=== PATIENT | male | born 1955 | race Caucasian/White ===

== ENCOUNTER 2018-08-13 14:41 | Outpatient (CLI) | payer OTHER, MEDICARE, SELFPAY ==
[2018-08-13 16:27] LABS: Anion Gap 11.3 mmol/L (3-11); BUN 24 mg/dL (7-18); CO2 26.7 mmol/L (21.0-32.0); CREATININE 1.23 mg/dL (0.70-1.30); Calcium 8.5 mg/dL (8.5-10.1); Chloride 106 mmol/L (98-107); Estimated GFR 59.06 (mL/min/1.73m2); Glucose 120 mg/dL (70-100); Potassium 3.7 mmol/L (3.5-5.1); Sodium 144 mmol/L (136-145)
[2018-08-14 13:54] LABS: PSA, Screening 4.5 ng/ml (0-4.5)
== END 2018-08-13 15:01 ==
PROVIDERS: PCP Family Medicine; Visit Provider Family Medicine
DX: I10 Essential (primary) hypertension (principal); Z12.5 Encounter for screening for malignant neoplasm of prostate
CPT/HCPCS: 36415; 80048; 84153; 83735

== ENCOUNTER 2019-01-06 14:10 | Outpatient (CLI) | payer OTHER, MEDICARE, SELFPAY | END 2019-01-06 14:30 | PROVIDERS: PCP Family Medicine; Visit Provider Urology | DX: R97.20 Elevated prostate specific antigen [PSA] (principal) | CPT/HCPCS: 36415; 84153 ==

== ENCOUNTER 2019-02-26 16:39 | Outpatient (CLI) | payer OTHER, MEDICARE, SELFPAY ==
--- NOTE | 2019-02-26 14:53 | DI.RAD_ITS ---
SYMPTOMS/DIAGNOSIS: BRONCHITIS, J40, COUGH, CHEST TIGHTNESS PA AND LATERAL CHEST: The heart is normal in size. The lungs are clear. The mediastinal structures and pleura appear intact. SUMMARY: Normal chest.
== END 2019-02-26 16:59 ==
PROVIDERS: PCP Family Medicine; Visit Provider Family Medicine
DX: J40 Bronchitis, not specified as acute or chronic (principal); R05 Cough; R07.89 Other chest pain
CPT/HCPCS: 71046

== ENCOUNTER 2019-03-31 09:25 | Outpatient (REF) | payer OTHER, MEDICARE, SELFPAY ==
[2019-03-31 13:58] LABS: Cholesterol 114 mg/dL (50-200); HDL Cholesterol 29 mg/dL (40-60); LDL CHOLESTEROL 54 mg/dL (<100); Triglyceride 251 mg/dL (30-150)
[2019-03-31 14:00] LABS: Hemoglobin A1C 7.2 % (4.5-6.2)
== END 2019-03-31 09:45 ==
LOC: NCHCN 09:25
PROVIDERS: PCP Family Medicine; Visit Provider Family Medicine
DX: E11.9 Type 2 diabetes mellitus without complications (principal); E78.5 Hyperlipidemia, unspecified
CPT/HCPCS: 80061; 83721; 83036

== ENCOUNTER 2019-06-29 10:51 | Outpatient (REF) | payer OTHER, MEDICARE, SELFPAY ==
[2019-06-29 12:56] LABS: BUN 20 mg/dL (7-18); CREATININE 1.37 mg/dL (0.70-1.30); Calcium 8.4 mg/dL (8.5-10.1); Chloride 105 mmol/L (98-107); Estimated GFR 51.99 (mL/min/1.73m2); Glucose 213 mg/dL (70-100); Magnesium 1.6 mg/dL (1.8-2.4); Potassium 3.5 mmol/L (3.5-5.1); Sodium 144 mmol/L (136-145)
== END 2019-06-29 11:11 ==
LOC: NCHCN 10:51
PROVIDERS: PCP Family Medicine; Visit Provider Family Medicine
DX: I10 Essential (primary) hypertension (principal); R00.8 Other abnormalities of heart beat
CPT/HCPCS: 80048; 83735

== ENCOUNTER 2019-10-28 18:59 | Outpatient (REF) | payer OTHER, MEDICARE, SELFPAY ==
[2019-10-28 20:15] LABS: Anion Gap 7.8 mmol/L (3-11); BUN 22 mg/dL (7-18); CO2 30.2 mmol/L (21.0-32.0); CREATININE 1.23 mg/dL (0.70-1.30); Calcium 8.7 mg/dL (8.5-10.1); Chloride 106 mmol/L (98-107); Estimated GFR 58.87 (mL/min/1.73m2); Glucose 138 mg/dL (74-106); Magnesium 1.9 mg/dL (1.8-2.4); Potassium 3.6 mmol/L (3.5-5.1); Sodium 144 mmol/L (136-145)
== END 2019-10-28 19:19 ==
LOC: NCHCN 18:59
PROVIDERS: PCP Family Medicine; Visit Provider Family Medicine
DX: E87.6 Hypokalemia (principal)
CPT/HCPCS: 80048; 83735

== ENCOUNTER 2020-06-20 19:38 | Outpatient (REF) | payer BC, MEDICARE, SELFPAY ==
[2020-06-20 22:51] LABS: COMMENT (LAB VIEW ONLY) 79.65 mg/dL; Microalb ug/mg Crea 34.9 ug/mg Cr
[2020-06-21 18:28] LABS: PSA, Diagnostic 2.6 ng/mL (0.0-4.5)
== END 2020-06-20 19:58 ==
LOC: NCHCN 19:38
PROVIDERS: PCP Family Medicine; Visit Provider Internal Medicine
DX: E11.9 Type 2 diabetes mellitus without complications (principal); R39.9 Unspecified symptoms and signs involving the genitourinary system
CPT/HCPCS: 82043; 82570; 83036; 84153

== ENCOUNTER 2021-01-27 02:54 | Outpatient (CLI) | payer MEDICARE, BC, SELFPAY ==
[2021-01-27 09:51] LABS: Anion Gap 9.4 mmol/L (3-11); BUN 18 mg/dL (7-18); CO2 30.6 mmol/L (21.0-32.0); CREATININE 1.3 mg/dL (0.70-1.30); Calcium 8.8 mg/dL (8.5-10.1); Chloride 101 mmol/L (98-107); Estimated GFR 55.06 (mL/min/1.73m2); Glucose 304 mg/dL (74-106); Magnesium 1.8 mg/dL (1.8-2.4); Potassium 4.3 mmol/L (3.5-5.1); Sodium 141 mmol/L (136-145); TSH (W/Ref FT4) 2.48 uIU/mL (0.36-3.74)
[2021-01-30 14:01] LABS: Testosterone, Total 422 ng/dL (240-950)
== END 2021-01-27 02:55 | disposition home or self-care (01) ==
LOC: LBO 02:54
PROVIDERS: PCP Family Medicine; Visit Provider Family Medicine
DX: R53.83 Other fatigue (principal); E87.6 Hypokalemia
CPT/HCPCS: 36415; 80048; 84403; 83735; 84443

== ENCOUNTER 2021-07-10 14:15 | Outpatient (REF) | payer MEDICARE, BC, SELFPAY ==
[2021-07-10 16:13] LABS: Anion Gap 8.6 mmol/L (3-11); BUN 21 mg/dL (7-18); CO2 26.4 mmol/L (21.0-32.0); Calcium 8.5 mg/dL (8.5-10.1); Chloride 109 mmol/L (98-107); Glucose 112 mg/dL (74-106); Sodium 144 mmol/L (136-145)
== END 2021-07-10 14:16 | disposition home or self-care (01) ==
LOC: NCHCN 14:15
PROVIDERS: PCP Family Medicine; Visit Provider Family Medicine
DX: E11.9 Type 2 diabetes mellitus without complications (principal); E87.6 Hypokalemia
CPT/HCPCS: 80048

== ENCOUNTER → 2021-08-18 08:19 | Outpatient (BNVA) | payer MEDICARE, BC, SELFPAY | PROVIDERS: PCP Family Medicine; Referring Provider Family Medicine; Visit Provider Student in an Organized Health Care Education/Training Program | DX: M72.0 Palmar fascial fibromatosis [Dupuytren] (principal); Z98.890 Other specified postprocedural states | CPT/HCPCS: 99202 ==

== ENCOUNTER 2022-06-19 15:50 | Outpatient (REF) | payer MEDICARE, BC, SELFPAY ==
[2022-06-19 15:25] LABS: Anion Gap 11.1 mmol/L (3-11); BUN 21 mg/dL (7-18); CO2 24.9 mmol/L (21.0-32.0); CREATININE 1.3 mg/dL (0.70-1.30); Calcium 8.6 mg/dL (8.5-10.1); Chloride 106 mmol/L (98-107); Estimated GFR 54.73 (mL/min/1.73m2); Glucose 139 mg/dL (74-106); Magnesium 1.7 mg/dL (1.8-2.4); Potassium 3.3 mmol/L (3.5-5.1); Sodium 142 mmol/L (136-145)
[2022-06-19 16:00] LABS: Hemoglobin A1C 5.9 % (<5.7)
== END 2022-06-19 15:51 | disposition home or self-care (01) ==
LOC: NCHCN 15:50
PROVIDERS: PCP Family Medicine; Visit Provider Family Medicine
DX: E11.9 Type 2 diabetes mellitus without complications (principal); R00.8 Other abnormalities of heart beat; I10 Essential (primary) hypertension
CPT/HCPCS: 80048; 83036; 83735

== ENCOUNTER 2022-11-12 14:23 | Outpatient (REF) | payer MEDICARE, BC, SELFPAY ==
[2022-11-12 15:55] LABS: Anion Gap 9.1 mmol/L (3-11); BUN 20 mg/dL (7-18); CO2 26.9 mmol/L (21.0-32.0); CREATININE 1.3 mg/dL (0.70-1.30); Calcium 8.6 mg/dL (8.5-10.1); Chloride 106 mmol/L (98-107); Estimated GFR 59.47 (mL/min/1.73m2); Glucose 187 mg/dL (74-106); Magnesium 1.8 mg/dL (1.8-2.4); Potassium 3.6 mmol/L (3.5-5.1); Sodium 142 mmol/L (136-145)
[2022-11-12 23:14] LABS: PSA, Diagnostic 1.8 ng/mL (<=4.5)
== END 2022-11-12 14:24 | disposition home or self-care (01) ==
LOC: NCHCN 14:23
PROVIDERS: PCP Family Medicine; Visit Provider Family Medicine
DX: R39.9 Unspecified symptoms and signs involving the genitourinary system (principal); E87.6 Hypokalemia
CPT/HCPCS: 80048; 83735; 84153

== ENCOUNTER 2023-11-08 17:55 | Outpatient (REF) | payer MEDICARE, BC, SELFPAY ==
[2023-11-08 15:44] LABS: Anion Gap 7.8 mmol/L (3-11); BUN 36 mg/dL (7-18); CO2 28.2 mmol/L (21.0-32.0); Calcium 9.1 mg/dL (8.5-10.1); Calculated LDL 30 mg/dL (<100); Chloride 105 mmol/L (98-107); Cholesterol 105 mg/dL (<200); Estimated GFR 35.24 (mL/min/1.73m2); Glucose 158 mg/dL (74-106); HDL Cholesterol 32 mg/dL (40-60); Magnesium 1.7 mg/dL (1.8-2.4); Potassium 3.3 mmol/L (3.5-5.1); Sodium 141 mmol/L (136-145); Triglyceride 218 mg/dL (<150)
== END 2023-11-08 17:56 | disposition home or self-care (01) ==
LOC: NCHCN 17:55
PROVIDERS: PCP Family Medicine; Visit Provider Family Medicine
DX: I25.10 Atherosclerotic heart disease of native coronary artery without angina pectoris (principal)
CPT/HCPCS: 80048; 80061; 83735

== ENCOUNTER 2023-11-12 19:44 | Outpatient (REF) | payer MEDICARE, BC, SELFPAY ==
[2023-11-12 18:36] LABS: Anion Gap 10.1 mmol/L (3-11); BUN 22 mg/dL (7-18); CO2 27.9 mmol/L (21.0-32.0); CREATININE 1.6 mg/dL (0.70-1.30); Calcium 8.7 mg/dL (8.5-10.1); Chloride 105 mmol/L (98-107); Estimated GFR 46.06 (mL/min/1.73m2); Glucose 172 mg/dL (74-106); Potassium 3.6 mmol/L (3.5-5.1); Sodium 143 mmol/L (136-145)
[2023-11-12 18:52] LABS: Sodium, Urine 67 mmol/L
[2023-11-12 18:55] LABS: COMMENT (LAB VIEW ONLY) 84.64 mg/dL; PROTEIN 8.9 mg/dL
[2023-11-13 17:21] LABS: Urea Nitrogen Random Urine 523 mg/dL (See Note)
== END 2023-11-12 19:45 | disposition home or self-care (01) ==
LOC: NCHCN 19:44
PROVIDERS: PCP Family Medicine; Visit Provider Family Medicine
DX: N28.9 Disorder of kidney and ureter, unspecified (principal)
CPT/HCPCS: 80048; 82565; 84156; 84300; 84540

== ENCOUNTER → 2023-11-13 09:01 | Outpatient (CLI) | payer MEDICARE, BC, SELFPAY ==
--- NOTE | 2023-11-13 | DI.US_ITS ---
Exam(s) US RENAL EXAM: US RENAL CLINICAL HISTORY: N28.9 disorder of kidney and ureter,unspecified. TECHNIQUE: Muniz scale, color and spectral Doppler were used. COMPARISON: CT RENAL COLIC WO CONTRAST from 08/05/2013 FINDINGS: Renal size in cm: Right: 11.3. Left: 12. Echogenicity: There is a parenchymal echogenic focus in the lower pole of the right kidney measuring 7 mm. Hydronephrosis: No. Cyst or mass: There is a 3.1 cm cyst in the left kidney. Nephrolithiasis: No. Other findings: None. Bladder:There is a soft tissue mass in the base of the urinary bladder. It measures 1.8 x 0.9 x 2.7 cm. Ureteral jets: Right: Visualized and unremarkable. Left: Visualized and unremarkable. Prevoid vol:230 cc Postvoid vol:49 cc Prostate: 11 cc Renal color flow: Symmetric and within normal limits. IMPRESSION: 1. Urinary bladder mass. CT urogram is requested for further evaluation. 2. 3.1 cm left renal cyst. DATA REPOSITORY:
== END ==
PROVIDERS: PCP Family Medicine; Visit Provider Family Medicine
DX: N28.9 Disorder of kidney and ureter, unspecified (principal)
CPT/HCPCS: 76770

== ENCOUNTER 2024-03-10 16:52 | Outpatient (REF) | payer MEDICARE, BC, SELFPAY ==
[2024-03-10 16:43] LABS: Anion Gap 10.3 mmol/L (3-11); CO2 26.7 mmol/L (21.0-32.0); CREATININE 1.3 mg/dL (0.70-1.30); Chloride 109 mmol/L (98-107); Estimated GFR 58.73 (mL/min/1.73m2); Glucose 246 mg/dL (74-106); Potassium 3.4 mmol/L (3.5-5.1); Sodium 146 mmol/L (136-145)
[2024-03-10 16:59] LABS: BUN 19 mg/dL (7-18); Calcium 8.4 mg/dL (8.5-10.1)
== END 2024-03-10 16:53 | disposition home or self-care (01) ==
LOC: NCHCN 16:52
PROVIDERS: PCP Family Medicine; Visit Provider Family Medicine
DX: N28.9 Disorder of kidney and ureter, unspecified (principal)
CPT/HCPCS: 80048

== ENCOUNTER 2024-07-07 15:25 | Outpatient (REF) | payer MEDICARE, BC, SELFPAY ==
[2024-07-07 17:42] LABS: BUN 23 mg/dL (7-18); CREATININE 1.3 mg/dL (0.70-1.30); Calcium 9.3 mg/dL (8.5-10.1); Chloride 109 mmol/L (98-107); Estimated GFR 58.73 (mL/min/1.73m2); Glucose 99 mg/dL (74-106); Potassium 3.9 mmol/L (3.5-5.1); Sodium 146 mmol/L (136-145)
== END 2024-07-07 15:26 | disposition home or self-care (01) ==
LOC: NCHCN 15:25
PROVIDERS: PCP Student in an Organized Health Care Education/Training Program; Visit Provider Student in an Organized Health Care Education/Training Program
DX: I10 Essential (primary) hypertension (principal)
CPT/HCPCS: 80048

== ENCOUNTER 2025-01-22 13:14 | Outpatient (REF) | payer MEDICARE, BC, SELFPAY ==
[2025-01-22 16:33] LABS: ALT 23 U/L (16-63); AST 15 U/L (15-37); Albumin 3.7 g/dL (3.4-5.0); Alkaline Phosphatase 76 U/L (46-116); Anion Gap 7.7 mmol/L (3-11); BUN 16 mg/dL (7-18); Bilirubin, Total 2.68 mg/dL (0.2-1.0); CO2 27.3 mmol/L (21.0-32.0); CREATININE 1.3 mg/dL (0.70-1.30); Calcium 9.1 mg/dL (8.5-10.1); Chloride 107 mmol/L (98-107); Estimated GFR 58.73 (mL/min/1.73m2); Glucose 417 mg/dL (74-106); Magnesium 2.2 mg/dL (1.8-2.4); Potassium 4.1 mmol/L (3.5-5.1); Sodium 142 mmol/L (136-145); Vitamin D 25 Total 26.4 ng/mL (30-100)
[2025-01-22 17:27] LABS: Hemoglobin A1C 10.9 % (<5.7)
== END 2025-01-22 13:15 | disposition home or self-care (01) ==
LOC: NCHCN 13:14
PROVIDERS: PCP Student in an Organized Health Care Education/Training Program; Visit Provider Student in an Organized Health Care Education/Training Program
DX: E11.9 Type 2 diabetes mellitus without complications (principal); E55.9 Vitamin D deficiency, unspecified; I10 Essential (primary) hypertension
CPT/HCPCS: 80053; 82306; 83036; 83735

== ENCOUNTER 2025-04-03 12:40 | Inpatient (IN) | payer MEDICARE, BC, SELFPAY ==
[2025-04-03] VITALS (46 sets, daily range): BP systolic 91–148; BP diastolic 69–97; PULSE 66–146; RESP 9–23; TEMP 36–36.3; O2SAT 84–100
--- NOTE | 2025-04-03 13:15 | RT.EKG_ITS ---
APPROVED REPORT Exam: Resting ECG Reason for Exam: Tachycardic Patient Location: E HR:131 bpm ECG Measurements Heart Rate 131 AXIS GA [id number] P [id number] QRSd 140 QRS -38 QT 345 T 92 QTc 509 Conclusion Atrial fibrillation...V-rate 83-160, irreg A-activity Right bundle branch block...QRSd>120, terminal axis(90,270) No Occlusion OH
--- NOTE | 2025-04-03 13:15 | DI.CT_ITS ---
Exam(s) CT ABD AORTA CTA W RUNOFF EXAM: CT ABD AORTA CTA W RUNOFF CLINICAL HISTORY: Vascular status, sepsis. TECHNIQUE: Imaging Protocol: Axial computed tomography images with coronal and sagittal reformatted images were created and reviewed CONTRAST MATERIAL: Intravenous: Omnipaque 350 Contrast volume:150cc Oral: None COMPARISON: No exams were available for comparison FINDINGS: z ABDOMEN: There is no evidence of abdominal aortic aneurysm. There is no significant stenosis at the origin of the celiac, SMA, and renal arteries. The inferior mesenteric artery is patent. There is a focal no nobstructive dissection in the abdominal aorta just above the inferior mesenteric artery takeoff poin t. Intimal flap does not extend to nor beyond the aortic bifurcation. There is no significant stenosis at the aortic bifurcation. There is moderate atherosclerotic involv ement of the left common iliac artery. There is mild arterial megaly of this vessel with diameter of 1.3 cm. No large aneurysm here and no dissection flap. Lesser involvement of the right common sen c artery. There is no stenosis at the junction of the common and external iliac arteries on either s lynette and there is no significant atherosclerotic narrowing of either external iliac artery. There is, however, tight stenosis at the origin of the left internal iliac artery without significant poststen otic dilatation. There is no significant stenosis at the origin of the right internal iliac artery. Both common femoral arteries are patent both SFA arteries throughout the length of the bilateral thig hs exhibit no evidence of hemodynamically significant stenosis. They are continuous with patent bila teral popliteal arteries which exhibit no significant narrowing nor aneurysms. With respect of the calf runoff vessels, on the left side the tibioperoneal trunk is patent without s ignificant stenosis. There is no difficult stenosis at the origin of the left anterior tibial artery although this artery is discontinuous in the mid-lower calf. The left posterior tibial artery is th e dominant runoff vessel and extends in continuous fashion through the length of the calf to and beyo nd the medial malleolus. The left peroneal artery is patent throughout its length to the lower calf level. The right calf runoff also exhibits a dominant right posterior tibial artery which reaches to and bey ond the medial malleolus. The right anterior tibial artery has a high popliteal level takeoff point and is patent to the upper calf level. The right peroneal artery descends to the mid calf level. There are no abnormal masses nor fluid collections in the lower extremities although there is subcuta neous edema noted below the knee bilaterally. There is no evidence of abscess. No obvious fractures nor osseous lesions. There is some gas incidentally noted in the right foot at the level of the mid -distal phalanges of the 3rd toe. There is no obvious fracture nor obvious evidence of osteomyelitis at this level. LIVER: There are no focal hepatic lesions nor dilatation of intrahepatic ducts. GALLBLADDER/BILIARY: Cholelithiasis without evidence of acute cholecystitis. CBD is not dilated. PANCREAS: No evidence of pancreatic mass nor dilatation of the pancreatic duct. SPLEEN: Spleen is not enlarged. There are no intrasplenic lesions. ADRENALS: There are no significant adrenal masses. KIDNEYS: There is a benign cyst in the anterior cortex of the left kidney which measures 1 cm and ano ther slightly larger cyst in the anterior cortex lower down measuring 1.6 cm. There is a benign cyst in the medial cortex of the right kidney measuring 2 cm and another cyst measuring 1.7 cm also in th e lateral cortex of the right kidney. And others benign cysts noted in the inferior pole the right k idney measuring 1.3 cm. There is a 4 millimeter nonobstructive calculus in the right kidney. There is no hydronephrosis thorough hydroureter on either side no obvious findings in the urinary bladder. Prostate size upper normal. Seminal vesicles unremarkable.. ABDOMINAL AORTA: See above LYMPH NODES: There is no retroperitoneal nor para-aortic adenopathy. No obvious mesenteric masses. ABDOMINAL WALL: No evidence of significant anterior abdominal wall hernia. GI: There is no evidence of bowel obstruction, free air, nor abscess.There are no ischemic appearing bowel loops. No evidence of diverticulitis nor appendicitis. PELVIS: LYMPH NODES: There is no intrapelvic nor inguinal adenopathy. URINARY BLADDER: No calculi nor masses evident REPRODUCTIVE: Prostate size upper normal. Seminal vesicles unremarkable. OSSEOUS: No significant osseous lesions. No fractures. Slight loss of height of superior endplate L 2 noted which is not acute. There are multiple Schmorl's node invaginations in the superior endplate of L2 vertebral body at this level. IMPRESSION: 1. No evidence of abdominal aortic aneurysm nor significant iliac artery aneurysms nor popliteal franklin ry aneurysms. 2. 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 3. There is atherosclerotic involvement of the common iliac arteries, more so on the left side but wi thout hemodynamically significant stenosis. There is, however, a significant stenosis of approximate ly 80 percent at the origin of the left internal iliac artery. No obvious poststenotic dilatation of the left internal iliac artery at this level. 4. There is 2 vessel runoff in both calves noted, as detailed above. The dominant runoff artery in b oth calves is the posterior tibial artery. 5. There appears to be some gas in the soft tissues of the 3rd toe of the right foot. There does no t appear to be obvious adjacent bone destruction. If clinically indicated follow-up MRI of the foot- toes could be performed for added sensitivity/specificity with respect osteomyelitis. There are no o bvious fractures evident. Findings discussed by phone with ER provider 04/03/2025 at 4:45 p.m. RADIATION DOSE DELIVERED: 2,021.78mGy.cm Total DLP DATA REPOSITORY: All CT scans at this facility are submitted to the National Radiology Data Registry (NRDR) Dose Index Registry (DIR) with the [employer] (A[employer]). RADIATION OPTIMIZATION: All CT scans at this facility use at least one of these dose optimization te chniques: automated exposure control; mA and/or kV adjustment per patient size (includes targeted exa ms where dose is matched to clinical indication); or iterative reconstruction.
--- NOTE | 2025-04-03 13:26 | ED.GENADUL_ITS ---
Discharge Plan Discharge Details Chief Complaint: Cellulitis Primary Care Provider: Mert Hurley ED Provider: Carolina Pepper Home Meds and New Rx's Prescriptions: No Action furosemide 20 mg tablet See Rx Instructions PO DAILY Rx Instructions: take 3 tablets PO daily and q pm prn for increased edema; metoprolol succinate 25 mg tablet extended release 24 hr 12.5 mg PO HS Eliquis 5 mg tablet 5 mg PO BID metformin 1,000 mg tablet 1,000 mg PO BID potassium chloride 10 mEq capsule, extended release 20 meq PO DAILY aspirin [Adult Aspirin Regimen] 81 mg tablet,delayed release (DR/EC) 81 mg PO DAILY finasteride 5 mg tablet 5 mg PO HS atorvastatin 80 mg tablet 80 mg PO HS Trulicity 1.5 mg/0.5 mL pen injector 1.5 mg subcut QWEEK fesoterodine [Toviaz] 4 mg tablet extended release 24 hr 4 mg PO DAILY flaxseed 1,000 MG capsule 1,000 mg PO DAILY loperamide-simethicone [Imodium Multi-Symptom Relief] 1 EACH tablet 1 tab PO DIRECTED PRN glucosamine-chondroitin [Osteo Bi-Flex] 1 EACH tablet 2 tab PO DAILY Centrum Ultra Men's 1 EACH tablet 1 tab PO DAILY tamsulosin [Flomax] 0.4 MG capsule 0.4 mg PO DAILY Fiber Choice (inulin) 1.5 GM tablet,chewable 1.5 gm PO DAILY HPI <Ella Oquendo NP - Last Filed: 04/03/25 16:00> General Mode of arrival: ambulatory . Date/Time Provider Initiated Documentation: 04/03/25 12:41 . Limitations to Documentation: no limitations . Information obtained by: patient, family, RN notes reviewed and old records reviewed . HPI Narrative: 70-year-old male presents to the ER coming by his significant other with a chief complaint of right foot injury he is unsure of the exact time of the injury. He does have peripheral neuropathy, is also a diabetic. He does have some erythema extending up into his proximal right crow. Upon arrival he is tachycardic with an irregular rate, he does have some significant swelling to his 3rd and 4th toes with erythema to the top of his foot, he is an insulin- dependent diabetic, history of onychomycosis, hypokalemia CVA nephropathy, hyperlipidemia and A-fib. Initially patient slightly hypotensive with blood pressure 91/70, on reevaluation 120 systolic. Related Data Home Medications ?Medication ?Instructions ?Recorded ?Confirmed glucosamine-chondroitin 250 mg-200 2 tab PO DAILY 08/05/13 04/03/25 mg tablet (Osteo Bi-Flex) loperamide 2 mg-simethicone 125 mg 1 tab PO DIRECTED PRN 08/05/13 04/03/25 tablet (Imodium Multi-Symptom Relief) multivit,Ca,min-iron 8 mg-folic 1 tab PO DAILY 08/05/13 04/03/25 acid 200 mcg-lycopene 600 mcg tablet (Centrum Ultra Men's) flaxseed 1,000 mg capsule 1,000 mg PO DAILY 06/06/15 04/03/25 inulin 1.5 gram chewable tablet 1.5 gm PO DAILY 03/01/16 04/03/25 (Fiber Choice (inulin)) tamsulosin 0.4 mg capsule (Flomax) 0.4 mg PO DAILY 03/01/16 04/03/25 apixaban 5 mg tablet (Eliquis) 5 mg PO BID 08/17/21 04/03/25 aspirin 81 mg tablet,delayed 81 mg PO DAILY 08/17/21 04/03/25 release (Adult Aspirin Regimen) atorvastatin 80 mg tablet 80 mg PO HS 08/17/21 04/03/25 dulaglutide 1.5 mg/0.5 mL 1.5 mg subcut QWEEK 08/17/21 04/03/25 subcutaneous pen injector (Trulicity) fesoterodine 4 mg tablet,extended 4 mg PO DAILY 08/17/21 04/03/25 release 24 hr (Toviaz) finasteride 5 mg tablet 5 mg PO HS 08/17/21 04/03/25 furosemide 20 mg tablet See Rx Instructions PO DAILY 08/17/21 04/03/25 metformin 1,000 mg tablet 1,000 mg PO BID 08/17/21 04/03/25 metoprolol succinate 25 mg 12.5 mg PO HS 08/17/21 04/03/25 tablet,extended release 24 hr potassium chloride 10 mEq 20 meq PO DAILY 08/17/21 04/03/25 capsule,extended release Allergies Allergy/AdvReac Type Severity Reaction Status Date / Time No Known Allergies Allergy Unverified 03/07/16 06:45 General Stated Complaint: Cellulitis ABELARDO: 2 Review of Systems <SEYMOUR Quevedo Last Filed: 04/03/25 16:00> All systems reviewed & are unremarkable except as noted in HPI and below Cardiovascular Cardiovascular: Denies chest pain and Denies dyspnea Respiratory Respiratory: Denies dyspnea Musculoskeletal Musculoskeletal: Reports as per HPI Integumentary/Breasts Skin/Breast: Reports as per HPI, Reports erythema, Reports skin pain, Reports skin swelling, Reports skin ulcer and Reports sores Exam <SEYMOUR Quevedo Last Filed: 04/03/25 16:00> Extrem Right lower extremity: foot Details: abnormal to inspection Details: erythematous and other (Very swollen 3rd and 4th toes, opening of skin, no active bleeding) and vascular exam Details: other (Chronic appearing peripheral vascular disease,) Upper/lower leg/hip images: 2 1. Erythema Course <SEYMOUR Quevedo Last Filed: 04/03/25 16:00> Vital Signs Vital signs: Vital Signs Temperature 36.2 C L 04/03/25 13:01 Pulse 146 H 04/03/25 13:01 Blood Pressure 91/70 L 04/03/25 13:01 Pulse Oximetry 98 04/03/25 13:01 Temperature 36.2 C L 04/03/25 13:01 Temperature Source Temporal Artery Scan 04/03/25 13:01 Pulse 146 H 04/03/25 13:01 Blood Pressure 91/70 L 04/03/25 13:01 Blood Pressure Mean 77 04/03/25 13:01 Pulse Oximetry 98 04/03/25 13:01 Medical Decision Making <SEYMOUR Quevedo Last Filed: 04/03/25 16:00> 70-year-old male presents to the ER coming by his significant other with a chief complaint of right foot injury he is unsure of the exact time of the injury. He does have peripheral neuropathy, is also a diabetic. He does have some erythema extending up into his proximal right crow. Upon arrival he is tachycardic with an irregular rate, he does have some significant swelling to his 3rd and 4th toes with erythema to the top of his foot, he is an insulin- dependent diabetic, history of onychomycosis, hypokalemia CVA nephropathy, hyperlipidemia and A-fib. Initially patient slightly hypotensive with blood pressure 91/70, on reevaluation 120 systolic. Septic workup ordered including ESR Pro-Paul lactate troponin, EKG PT PTT. X-ray right lower extremity and CTA with runoff to include CT of extremity. I do suspect diabetic wound with cellulitis and possible underlying fracture or injury. Will consider transfer to tertiary facility. Liter of LR ordered, 25 mg of metoprolol p.o., vancomycin and Zosyn ordered. 1458: Patient's heart rate is 85 and he appears to be in sinus rhythm repeat EKG ordered. Informed by gunstock spray unit adjuster that lab was unable to get a second set of blood cultures was able to get a pediatric bottle of culture. No leukocytosis neutrophils 8.90, ESR is 20 lactate 2.4, sodium 131 potassium 4.5 BUN 25 creatinine 1.4 GFR is 53 glucose is 488 magnesium 1.9 bilirubin 2.8 elevated transaminases AST 54 ALT 85 alk phos 348 initial troponin 18, CRP is 8.17 procalcitonin is less than 0.10. 1536: Patient in DI at this time, care to be handed off to oncoming provider Petey Bales [employer]ING SUPERVISOR pending CT results, and either admission versus transfer to tertiary facility for diabetic foot cellulitis. Medical Records Medical records reviewed: Yes I reviewed the patient's medical records. Medical records narrative: Patient has not been seen at this facility no provider notes from 2016 does have some recent labs however. Lab Data Lab results reviewed: Yes I reviewed the patient's lab results. Labs: 04/03/25 14:57 Blood Blood Culture - Pending 04/03/25 13:45 Blood Blood Culture - Pending Laboratory Tests Range/Units 04/03/25 13:45 WBC (4.4-10.8) 10^3/uL 10.01 RBC (4.36-5.78) 10^6/uL 4.57 Hgb (13.5-17.5) g/dL 14.5 Hct (40.0-50.0) % 43.5 MCV (80-95) fL 95 MCH (27.0-33.0) pg 31.7 MCHC (32.0-36.0) % 33.3 RDW (11.8-14.1) % 15.7 H Plt Count (130-400) 10^3/uL 213 MPV (8.0-11.0) fL 12.1 H Immature Gran % % 0.8 Neutrophils % % 88.9 Lymphocytes % % 5.6 Monocytes % % 4.2 Eosinophils % % 0.3 Basophils % % 0.2 Nucleated RBC % (0.0-0.3) % 0.0 Absolute Neutrophils (1.2-6.7) 10^3/uL 8.90 H Absolute Lymphocytes (1.2-3.4) 10^3/uL 0.56 L Absolute Monocytes (0.1-0.8) 10^3/uL 0.42 Absolute Eosinophils (0.0-0.7) 10^3/uL 0.03 Absolute Basophils (0.0-0.2) 10^3/uL 0.02 ESR (0-20) mm/hr 20 PT (9.1-11.1) sec 10.5 INR (0.9-1.1) 1.0 VBG Lactate (<or=2.0) mmol/L 2.4 H* Sodium (136-145) mmol/L 131 L Potassium (3.5-5.1) mmol/L 4.5 Chloride (98-107) mmol/L 97 L Carbon Dioxide (21.0-32.0) mmol/L 26.0 Anion Gap (3-11) mmol/L 8.0 BUN (7-18) mg/dL 25 H Creatinine (0.70-1.30) mg/dL 1.4 H Est GFR (CKD-EPI 2020) (mL/min/1.73m2) 53.40 Glucose (74-106) mg/dL 488 H Calcium (8.5-10.1) mg/dL 10.0 Magnesium (1.8-2.4) mg/dL 1.9 Total Bilirubin (0.2-1.0) mg/dL 2.8 H AST (15-37) U/L 54 H ALT (16-63) U/L 85 H Alkaline Phosphatase (46-116) U/L 348 H Troponin I (<or=76) ng/L 18 C-Reactive Protein (<or=0.5) mg/dL 8.17 H Total Protein (6.4-8.2) g/dL 7.9 Albumin (3.4-5.0) g/dL 3.4 Procalcitonin ng/mL < 0.10 Quality:SDOH Health Related Social Needs: 2 No Data to Display PFSH <Ella Oquendo NP - Last Filed: 04/03/25 16:00> All Active Problems Dupuytren's contracture of right hand (Acute) Chronic low back pain (Acute) Nephrolithiasis (Chronic) MARSHAL (obstructive sleep apnea) (Chronic) Hyperlipidemia (Acute) Hypertrophic cardiomyopathy (Acute) Hypertension (Chronic) Afib (Chronic) Osteoarthritis of left shoulder (Acute) CAD (coronary artery disease) (Chronic) Ventricular bigeminy (Acute) Diabetes mellitus type 2 in obese (Acute) Colon cancer screening (Acute) Medical History H/O onychomycosis Hypokalemia CVA (cerebral vascular accident) Nephropathy Tendonitis of left rotator cuff (10/06/15) Surgical History Colonoscopy - MAC (07/15/15) DR.TERRY MON Social History Smoking/Tobacco Use Status: Never Smoking risk assessment performed?: Yes Drug use: Never Current gender identity: male MONTRELL <Ella Oquendo NP - Last Filed: 04/03/25 16:00> Have you Been Recently Intoxicated or Drunk Within the Last 30 days?: No Have you Ever Experienced Previous Episodes of Alcohol Withdrawal?: No Have you ever Experienced Withdrawal Seizures?: No Have you ever Experienced Delirium Tremens(DT)s?: No Have you ever undergone Alcohol Rehabilitation Treatment (i.e, inpt ot outpatient treatment programs)?: No Have you ever Experienced Blackouts?: No Have you ever Combined Alcohol with other Downers within the last 90 days?: No Have you ever Combined Alcohol with any other Substance of Abuse during the last 90 days?: No Positive Blood Alcohol level on Presentation? [PCS.BAL]: No Evidence of Increased Autonomic Activity (i.e. HR>120, tremor, sweating, agitation, nausea)?: No Result: 0 <Carolina Jauregui - Last Filed: 04/03/25 16:59> Result: 0
--- NOTE | 2025-04-03 13:30 | DI.RAD_ITS ---
Exam(s) XR FOOT RT COMPLETE EXAM: XR FOOT RT COMPLETE CLINICAL HISTORY: Injury. TECHNIQUE: 2D digital imaging was performed. COMPARISON: No exams were available for comparison FINDINGS: 3 views No evidence of acute fracture nor diastasis of the Lisfranc joint. Mild degenerative changes in the great toe metatarsophalangeal joint. There is an accessory ossicle on the medial aspect of the foot adjacent to the navicular tuberosity. Some degenerative changes are noted at the tarsometatarsal joints. IMPRESSION: No acute osseous findings. DATA REPOSITORY: RADIATION DOSE DELIVERED:
[2025-04-03] MEDS: Metoprolol 25 MG TAB PO (13:50)
[2025-04-03] MEDS: Lactated Ringers 1,000 ML 1000 ML IV (13:51)
[2025-04-03 13:53] LABS: Abs Immature Grans 0.08 10^3/uL (0.0-0.06); Absolute Basophil Count 0.02 10^3/uL (0.0-0.2); Absolute Eosinophil Count 0.03 10^3/uL (0.0-0.7); Absolute Lymphocyte Count 0.56 10^3/uL (1.2-3.4); Absolute Monocyte Count 0.42 10^3/uL (0.1-0.8); Basophils % 0.2 %; Eosinophils % 0.3 %; HCT 43.5 % (40.0-50.0); HGB 14.5 g/dL (13.5-17.5); Immature Grans % 0.8 %; Lymphocytes % 5.6 %; MCH 31.7 pg (27.0-33.0); MCHC 33.3 % (32.0-36.0); MCV 95 fL (80-95); MPV 12.1 fL (8.0-11.0); Monocytes % 4.2 %; Neutrophils % 88.9 %; Platelet Count 213 10^3/uL (130-400); RBC 4.57 10^6/uL (4.36-5.78); RDW 15.7 % (11.8-14.1); RDW-SD 54.8 fL; WBC 10.01 10^3/uL (4.4-10.8)
[2025-04-03 13:56] LABS: Lactate 2.4 mmol/L (<or=2.0)
[2025-04-03 13:57] LABS: ESR 20 mm/hr (0-20)
[2025-04-03 14:18] LABS: ALT 85 U/L (16-63); AST 54 U/L (15-37); Albumin 3.4 g/dL (3.4-5.0); Alkaline Phosphatase 348 U/L (46-116); BUN 25 mg/dL (7-18); Bilirubin, Total 2.8 mg/dL (0.2-1.0); C-Reactive Protein 8.17 mg/dL (<or=0.5); CREATININE 1.4 mg/dL (0.70-1.30); Chloride 97 mmol/L (98-107); Magnesium 1.9 mg/dL (1.8-2.4); Potassium 4.5 mmol/L (3.5-5.1); Sodium 131 mmol/L (136-145); Total Protein 7.9 g/dL (6.4-8.2); Troponin I 18 ng/L (<or=76)
[2025-04-03 14:21] LABS: Prothrombin Time 10.5 sec (9.1-11.1)
[2025-04-03] MEDS: PIPERACILLIN/TAZO 3.375 GM in Normal Saline 50 ML IVPB ×2 (14:23→21:07)
[2025-04-03 14:27] LABS: Procalcitonin < 0.10 ng/mL
[2025-04-03] MEDS: VANCOMYCIN 1,000 MG in Normal Saline 250 ML 166.6666 MG IVPB (14:41)
[2025-04-03 14:44] LABS: Glucose 488 mg/dL (74-106)
--- NOTE | 2025-04-03 14:45 | RT.EKG_ITS ---
APPROVED REPORT Exam: Resting ECG Reason for Exam: Repeat Patient Location: E HR:83 bpm ECG Measurements Heart Rate [address] [id number] P [id number] QRSd 141 QRS -27 QT 389 T 93 QTc 458 Conclusion Atrial fibrillation...V-rate 75- 91, irreg A-activity Right bundle branch block...QRSd>120, terminal axis(90,270) No Occlusion NM
[2025-04-03 15:10] LABS: Troponin I 16 ng/L (<or=76)
[2025-04-03] MEDS: Omnipaque 350 MG/ML 100 ML BTL IJ (15:21)
[2025-04-03] MEDS: Normal Saline - Diluent 50 ML VIAL IJ (15:21)
[2025-04-03] MEDS: Omnipaque 350 MG/ML 50 ML BTL IJ (15:22)
[2025-04-03 16:28] LABS: Lactate 2.3 mmol/L (<or=2.0)
--- NOTE | 2025-04-03 16:59 | ED.FU.B_ITS ---
Follow Up Plan: Handoff report received from Ella Oquendo NP, daytime [facility]. Please see her note for full HPI, ROS, physical exam, and interpretation of labs. I did briefly interview Bryan, who reports that he noticed that he had swelling and discoloration to his toes this morning while showering (says it has been a few days since he showered). He does not recall any trauma, but thinks that he may have stubbed it. Denies fever/chills, general malaise, recent illness, nausea/vomiting, abdominal pain, new numbness/tingling. Does report 40 pound weight loss since [place]. He does report some pain to the dorsum of his right foot, but otherwise has peripheral neuropathy and does not have any pain. Blood sugars have been elevated lately, has been taking Lantus as prescribed. He does have a sliver handler in [place] that he goes to see for nail cutting. Physical exam remarkable for discoloration to the 2nd and 3rd toes as shown below photos. Erythema to the dorsum of the foot with warmth and tenderness to palpation. Medial malleolus pulse was able to be palpated. Discussed findings with radiologist Dr. Warner, there appears to be some gas in the soft tissues of the third toe but no obvious bony destruction. Two-vessel runoff in both calves noted. 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 History and presentation consistent with cellulitis with possible gangrene to the toes. Discussed case with Dr. Camacho, orthopedist. He came in to evaluate patient, recommends amputation and continued antibiotics for gangrene. As patient has multiple comorbidities, he will be admitted to the hospitalist service. Discussed case with Dr. Santo, who is agreeable with plan of care. Imaging and Studies Imaging and Studies Study information below may be from another EMR and interpreted by another provider. Please see original notes in EMR for more complete details. EKG Image & Interpretation: 2 EKG Interpretation Report 04/03/25 14:45 Stress Test Interpretation: 2 No Data to Display Echo Interpretation: 2 Echocardiogram Ultrasound 09/22/15 15:50 X-Ray Summary: Exam(s) XR FOOT RT COMPLETE EXAM: XR FOOT RT COMPLETE CLINICAL HISTORY: Injury. TECHNIQUE: 2D digital imaging was performed. COMPARISON: No exams were available for comparison FINDINGS: 3 views No evidence of acute fracture nor diastasis of the Lisfranc joint. Mild degenerative changes in the great toe metatarsophalangeal joint. There is an accessory ossicle on the medial aspect of the foot adjacent to the navicular tuberosity. Some degenerative changes are noted at the tarsometatarsal joints. IMPRESSION: No acute osseous findings. CT Summary: Exam(s) CT ABD AORTA CTA W RUNOFF EXAM: CT ABD AORTA CTA W RUNOFF CLINICAL HISTORY: Vascular status, sepsis. TECHNIQUE: Imaging Protocol: Axial computed tomography images with coronal and sagittal reformatted images were created and reviewed CONTRAST MATERIAL: Intravenous: Omnipaque 350 Contrast volume:150cc Oral: None COMPARISON: No exams were available for comparison FINDINGS: z ABDOMEN: There is no evidence of abdominal aortic aneurysm. There is no significant stenosis at the origin of the celiac, SMA, and renal arteries. The inferior mesenteric artery is patent. There is a focal nonobstructive dissection in the abdominal aorta just above the inferior mesenteric artery takeoff point. Intimal flap does not extend to nor beyond the aortic bifurcation. There is no significant stenosis at the aortic bifurcation. There is moderate atherosclerotic involvement of the left common iliac artery. There is mild arterial megaly of this vessel with diameter of 1.3 cm. No large aneurysm here and no dissection flap. Lesser involvement of the right common iliac artery. There is no stenosis at the junction of the common and external iliac arteries on either side and there is no significant atherosclerotic narrowing of either external iliac artery. There is, however, tight stenosis at the origin of the left internal iliac artery without significant poststenotic dilatation. There is no significant stenosis at the origin of the right internal iliac artery. Both common femoral arteries are patent both SFA arteries throughout the length of the bilateral thighs exhibit no evidence of hemodynamically significant stenosis. They are continuous with patent bilateral popliteal arteries which exhibit no significant narrowing nor aneurysms. With respect of the calf runoff vessels, on the left side the tibioperoneal trunk is patent without significant stenosis. There is no difficult stenosis at the origin of the left anterior tibial artery although this artery is discontinuous in the mid-lower calf. The left posterior tibial artery is the dominant runoff vessel and extends in continuous fashion through the length of the calf to and beyond the medial malleolus. The left peroneal artery is patent throughout its length to the lower calf level. The right calf runoff also exhibits a dominant right posterior tibial artery which reaches to and beyond the medial malleolus. The right anterior tibial artery has a high popliteal level takeoff point and is patent to the upper calf level. The right peroneal artery descends to the mid calf level. There are no abnormal masses nor fluid collections in the lower extremities although there is subcutaneous edema noted below the knee bilaterally. There is no evidence of abscess. No obvious fractures nor osseous lesions. There is some gas incidentally noted in the right foot at the level of the mid-distal phalanges of the 3rd toe. There is no obvious fracture nor obvious evidence of osteomyelitis at this level. LIVER: There are no focal hepatic lesions nor dilatation of intrahepatic ducts. GALLBLADDER/BILIARY: Cholelithiasis without evidence of acute cholecystitis. CBD is not dilated. PANCREAS: No evidence of pancreatic mass nor dilatation of the pancreatic duct. SPLEEN: Spleen is not enlarged. There are no intrasplenic lesions. ADRENALS: There are no significant adrenal masses. KIDNEYS: There is a benign cyst in the anterior cortex of the left kidney which measures 1 cm and another slightly larger cyst in the anterior cortex lower down measuring 1.6 cm. There is a benign cyst in the medial cortex of the right kidney measuring 2 cm and another cyst measuring 1.7 cm also in the lateral cortex of the right kidney. And others benign cysts noted in the inferior pole the right kidney measuring 1.3 cm. There is a 4 millimeter nonobstructive calculus in the right kidney. There is no hydronephrosis thorough hydroureter on either side no obvious findings in the urinary bladder. Prostate size upper normal. Seminal vesicles unremarkable.. ABDOMINAL AORTA: See above LYMPH NODES: There is no retroperitoneal nor para-aortic adenopathy. No obvious mesenteric masses. ABDOMINAL WALL: No evidence of significant anterior abdominal wall hernia. GI: There is no evidence of bowel obstruction, free air, nor abscess.There are no ischemic appearing bowel loops. No evidence of diverticulitis nor appendicitis. PELVIS: LYMPH NODES: There is no intrapelvic nor inguinal adenopathy. URINARY BLADDER: No calculi nor masses evident REPRODUCTIVE: Prostate size upper normal. Seminal vesicles unremarkable. OSSEOUS: No significant osseous lesions. No fractures. Slight loss of height of superior endplate L2 noted which is not acute. There are multiple Schmorl's node invaginations in the superior endplate of L2 vertebral body at this level. IMPRESSION: 1. No evidence of abdominal aortic aneurysm nor significant iliac artery aneurysms nor popliteal artery aneurysms. 2. 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 3. There is atherosclerotic involvement of the common iliac arteries, more so on the left side but without hemodynamically significant stenosis. There is, however, a significant stenosis of approximately 80 percent at the origin of the left internal iliac artery. No obvious poststenotic dilatation of the left internal iliac artery at this level. 4. There is 2 vessel runoff in both calves noted, as detailed above. The dominant runoff artery in both calves is the posterior tibial artery. 5. There appears to be some gas in the soft tissues of the 3rd toe of the right foot. There does not appear to be obvious adjacent bone destruction. If clinically indicated follow-up MRI of the foot-toes could be performed for added sensitivity/specificity with respect osteomyelitis. There are no obvious fractures evident. Carotid Artery US: 2 No Data to Display Pulmonary Function Test Interpretation: 2 No Data to Display
[2025-04-03] MEDS: Normal Saline 500 ML 1000 ML IV (17:14)
--- NOTE | 2025-04-03 18:13 | W.ORTHOCONSU ---
Date of service: 04/03/25 Time of Service: 17:30 History of Present Illness History of Present Illness Chief Complaint: right foot pain and toe discoloration Narrative: Bryan is a 70-year-old male who has known type 2 diabetes and multiple other medical comorbidities who presents today for right foot redness, swelling, pain and third toe discoloration. He has an extensive history for a complex wound about the right lower extremity. This was managed mostly at [facility] and evaluated for vascular disease although negative. This was treated with prolonged wound care and eventually healed with some chronic changes about the right leg. He does report having some neuropathy about the feet with decreased sensation on the toes with little toe motion. He feels it has been years since has been able to extend or flex his toes. He reports some hammering but otherwise no significant concerns about his toes. He is unsure when he had looked at it last but when this was looked at today there was noted to be black changes to the tip of the right third toe. He presented to the emergency department for evaluation. CT angiography was performed did not show any significant vascular concerns about the right lower extremity. There is no sign of bony destruction but there was some gas in the soft tissues about the third toe. His blood glucose been running quite high, 488 upon admission to the emergency department today. He has not taken his Eliquis today. He reports atrial fibrillation which is relatively stable with previous history of 1 stent and an ablation procedure. He has received Zosyn here in the emergency department. He denies any fevers or chills. He denies any cough or shortness of breath. He denies any wounds elsewhere. Consults Consult date: 04/03/25 Requesting physician: Carolina Jauregui Consult Reason Right foot wound and cellulitis Assessment and Plan Assessment and plan (1) Gangrene of toe of right foot: Status: Acute (2) Diabetic ulcer of foot associated with type 2 diabetes mellitus, with necrosis of muscle: Status: Acute Assessment and plan: Bryan is a 70-year-old male with multiple medical comorbidities including poorly controlled diabetes and a history of a significant wound about the right leg which is unclear in his origin. The tip of the right third toe is . I was very honest with Bryan and his partner that the demarcated area of black tissue is mummified and is tissue. The plantar aspect of the toe also looks to be nonviable. There is notable erythema at the base of the dorsum of the right third toe extending on the dorsum of the foot which does represent some infection. I had no expressible purulence and my suspicion is that this actually started as a gangrenous wound which is now secondarily getting infected due to his poorly controlled diabetes. I was very honest with him and his that I do not think there is much in the sense of salvage. The third toe needs to be removed. How much is removal be determined slightly by what is seen intraoperatively. I do think starting antibiotics at this point would be very beneficial to hopefully curb any contiguous spread but also improve the health of the tissue surrounding the third toe. I went over this with him in some detail technically about what would be done. He is very reluctant to consider having his toe removed even in part at this time. I once again expressed him that it probably needs to be done. I also do not think there is a ocampo to do so as he is not systemically ill. However, if he starts showing any signs of more aggressive infection characteristics and surgery needs to happen more urgently. There also was not much purulence in this area and therefore I think the risk of MRSA is quite low. I would recommend that we treat him with broad-spectrum coverage for typical diabetic foot organisms, mostly covered with Zosyn. I would recommend admission to the hospital service for management of his diabetes and chronic medical comorbidities. Plan for n.p.o. after midnight. I will speak with him in the morning to further discuss treatments with recommendation for partial imitation of the third toe on the right foot. All of his questions were answered. Review of Systems All systems reviewed & are unremarkable except as noted in HPI and below PFSH All Active Problems (Updated 04/03/25 @ 18:27 by Brad Santo MD) Elevated LFTs (Acute) Diabetic ulcer of foot associated with type 2 diabetes mellitus, with necrosis of muscle (Acute) Gangrene of toe of right foot (Acute) Dupuytren's contracture of right hand (Acute) Chronic low back pain (Acute) Nephrolithiasis (Chronic) MARSHAL (obstructive sleep apnea) (Chronic) Hyperlipidemia (Acute) Hypertrophic cardiomyopathy (Acute) Hypertension (Chronic) Afib (Chronic) Osteoarthritis of left shoulder (Acute) CAD (coronary artery disease) (Chronic) Ventricular bigeminy (Acute) Diabetes mellitus type 2 in obese (Acute) Colon cancer screening (Acute) Medical History H/O onychomycosis Hypokalemia CVA (cerebral vascular accident) Nephropathy Tendonitis of left rotator cuff (10/06/15) Surgical History Colonoscopy - MAC (07/15/15) DR.TERRY MON Social History Smoking/Tobacco Use Status: Never Smoking risk assessment performed?: Yes Drug use: Never Current gender identity: male Exam Narrative Exam Narrative: Sitting up in the hospital stretcher without any acute distress. Alert and oriented x 3. Evaluation of the right lower extremity shows chronic stasis changes and skin changes about the right leg involving the majority of the leg itself distal to the knee. There is no defect in the skin. There is no significant peripheral edema. The right foot has notable cellulitis over the dorsum of the foot concentrated over the distal aspect of the dorsum of the foot, centered around the third toe. There is black discoloration to the tip of the third toe with some mummification of the tissues. The toenail is loose. The plantar aspect of the toe is cool with a blue discoloration. There is some lamination of the skin. There is no expressible purulence in this area. There is pain to palpation about the dorsum of the foot and the level of the cellulitis. He does endorse sensation to the level of the MTP joints. There is also an area of some bronze discoloration of the tip of the second toe. The second toe itself is maybe slightly swollen although I do not see any true defects. No pain with manipulation of the toe. No area of fluctuance. Faintly palpable PT pulse. Results Last Vital Signs Temp 36.2 C L 04/03/25 13:01 Pulse 83 04/03/25 16:10 Resp 14 04/03/25 15:10 BP 132/84 04/03/25 14:46 Pulse Ox 98 04/03/25 16:10 Labs 04/03/25 13:45 04/03/25 13:45 Labs: Laboratory Results - last 24 hr 04/03/25 04/03/25 04/03/25 13:45 14:40 16:22 WBC 10.01 RBC 4.57 Hgb 14.5 Hct 43.5 MCV 95 MCH 31.7 MCHC 33.3 RDW 15.7 H Plt Count 213 MPV 12.1 H Immature Gran % 0.8 Neutrophils % 88.9 Lymphocytes % 5.6 Monocytes % 4.2 Eosinophils % 0.3 Basophils % 0.2 Nucleated RBC % 0.0 Absolute Neutrophils 8.90 H Absolute Lymphocytes 0.56 L Absolute Monocytes 0.42 Absolute Eosinophils 0.03 Absolute Basophils 0.02 ESR 20 PT 10.5 INR 1.0 VBG Lactate 2.4 H* 2.3 H* Sodium 131 L Potassium 4.5 Chloride 97 L Carbon Dioxide 26.0 Anion Gap 8.0 BUN 25 H Creatinine 1.4 H Est GFR (CKD-EPI 2020) 53.40 Glucose 488 H Calcium 10.0 Magnesium 1.9 Total Bilirubin 2.8 H AST 54 H ALT 85 H Alkaline Phosphatase 348 H Troponin I 18 16 C-Reactive Protein 8.17 H Total Protein 7.9 Albumin 3.4 Procalcitonin < 0.10 04/03/25 16:25 WBC RBC Hgb Hct MCV MCH MCHC RDW Plt Count MPV Immature Gran % Neutrophils % Lymphocytes % Monocytes % Eosinophils % Basophils % Nucleated RBC % Absolute Neutrophils Absolute Lymphocytes Absolute Monocytes Absolute Eosinophils Absolute Basophils ESR PT INR VBG Lactate Sodium Potassium Chloride Carbon Dioxide Anion Gap BUN Creatinine Est GFR (CKD-EPI 2020) Glucose Calcium Magnesium Total Bilirubin AST ALT Alkaline Phosphatase Troponin I Cancelled C-Reactive Protein Total Protein Albumin Procalcitonin Imaging Imaging Studies: CT angio about the right lower extremity is reviewed. This shows patent vessels running all the way down to the level of the ankle. Posterior tibial arteries primary dominant. There is notable soft tissue swelling over the dorsum of the foot although I do not see a true abscess. No significant bony destruction is appreciated. There is some gas seen in the tip of the third toe. EXOS X-ray of the right foot does not show any bony destruction. There is a hyperextended position of the MTP joints. No tracking soft tissue emphysema.
--- NOTE | 2025-04-03 18:22 | HPE_ITS ---
Date of service: 04/03/25 Time of Service: 18:22 Assessment and Plan Assessment and plan (1) Gangrene of toe of right foot: Status: Acute Assessment and plan: - Patient initially presented with concerns for wound on right third toe - Imaging ultimately showed gas, and in combination with necrotic appearing third toe it is likely that patient had either chronically poor microvascular blood flow to the toe or some on seen microvascular embolic type of event leading to the toe necrosing then resulting in presence of gaseous gangrene - Patient was started on Vanco and Zosyn in the emergency department - Patient was seen by orthopedic surgeon Dr. Camacho who recommended surgical intervention, though patient declined this evening but is willing to reassess in the morning - Dr. Camacho recommended preparing patient for surgery in the morning in the event that he is agreeable - As discussed with Dr. Camacho, we will continue Zosyn only, as wound was not purulent appearing (2) Diabetes mellitus type 2 in obese: Status: Acute Assessment and plan: - Likely one of them not the primary contributing factors to patient's gangrenous right third toe as noted above - Patient noted also as being significantly hyperglycemic upon presentation to the emergency department with a blood sugar of over 500 - In the emergency department patient received total of 2 L normal saline - Blood sugar improved to 300 - Patient will be allowed to eat this afternoon but will be made n.p.o. at midnight - Sliding scale insulin, carb consistent diet until n.p.o. at midnight as noted above (3) CAD (coronary artery disease): Status: Chronic Assessment and plan: - Holding home aspirin as noted above - Holding home statin as noted below - Continue home metoprolol as noted below (4) Afib: Status: Chronic Assessment and plan: - Holding home Eliquis for potential surgical intervention as noted above - Continue home metoprolol succinate 12.5 mg p.o. at bedtime (5) Hypertension: Status: Chronic Assessment and plan: - Normotensive at this time - Will hold home Lasix given active infection and likely surgical intervention tomorrow morning 04/04/2025 (6) Hyperlipidemia: Status: Acute Assessment and plan: - Holding home statin as noted below (7) Elevated LFTs: Status: Acute Assessment and plan: -T. bili 2.8, AST 54, ALT 85, alk phos 348 -Has history of elevated total bilirubin noted to be 2.6 at the end of December 2024 -May be secondary to statin use, will hold home 80 mg atorvastatin -follow-up CMP History of Present Illness History of Present Illness Chief Complaint: right foot infection Narrative: 70-year-old gentleman with a past medical history of coronary artery disease, A- fib on Eliquis, hypertension, hyperlipidemia and poorly controlled IDDM presents to the emergency department with complaints of a wound on his right third toe Patient stated that he noted swelling and discoloration of his toe earlier this morning while showering, noting that he had not looked at his feet over the last few days prior. Patient stated that he did not recall any trauma or banging his toe though upon further thought he states he may have stubbed it but he does not notices he has peripheral neuropathy due to his diabetes. Patient denied noting any drainage, or complaining of any headache, lightheadedness, dizziness, fever, nausea vomiting or diarrhea. In the emergency department patient was noted as having normal vital signs with the exception of an elevated heart rate which improved after administration of metoprolol. His CBC was unremarkable, CMP was notable for significantly elevated blood glucose of about 480, as well as elevated LFTs with a T. bili of 2.8, AST 54, ALT 85, alk phos of 348 (most recent T. bili of 2.68 in December 2024), as well as creatinine of 1.4 (baseline about 1.3). Patient was given 1 L normal saline as well as vancomycin and Zosyn for presumed infection. X-ray was unremarkable but CT of the aorta with runoff CTA showed gas in the soft tissue of the third toe of the right foot without signs of bone destruction. orthopedic surgeon Dr. Camacho was consulted, and recommended admitting the patient to medicine with continuation of IV antibiotic and preparation for likely amputation and surgical wound debridement in the morning. Which time emergency room PA paged hospitalist for admission for patient with right third toe gangrene requiring IV antibiotics and surgical intervention. Review of Systems All systems reviewed & are unremarkable except as noted in HPI and below PFSH All Active Problems (Updated 04/03/25 @ 20:35 by Carolina Jauregui) Dissection of infrarenal aorta (Acute) Elevated LFTs (Acute) Diabetic ulcer of foot associated with type 2 diabetes mellitus, with necrosis of muscle (Acute) Gangrene of toe of right foot (Acute) Dupuytren's contracture of right hand (Acute) Chronic low back pain (Acute) Nephrolithiasis (Chronic) MARSHAL (obstructive sleep apnea) (Chronic) Hyperlipidemia (Acute) Hypertrophic cardiomyopathy (Acute) Hypertension (Chronic) Afib (Chronic) Osteoarthritis of left shoulder (Acute) CAD (coronary artery disease) (Chronic) Ventricular bigeminy (Acute) Diabetes mellitus type 2 in obese (Acute) Colon cancer screening (Acute) Medical History H/O onychomycosis Hypokalemia CVA (cerebral vascular accident) Nephropathy Tendonitis of left rotator cuff (10/06/15) Surgical History Colonoscopy - MAC (07/15/15) DR.TERRY MON Social History Smoking/Tobacco Use Status: Never Smoking risk assessment performed?: Yes Drug use: Never Housing: house Current gender identity: male Meds Allergies and Home Medications Allergies Allergy/AdvReac Type Severity Reaction Status Date / Time No Known Allergies Allergy Unverified 03/07/16 06:45 Home Medications ?Medication ?Instructions ?Recorded ?Confirmed ?Type glucosamine-chondroitin 250 mg-200 2 tab PO DAILY 08/05/13 04/03/25 History mg tablet (Osteo Bi-Flex) loperamide 2 mg-simethicone 125 mg 1 tab PO DIRECTED PRN 08/05/13 04/03/25 History tablet (Imodium Multi-Symptom Relief) multivit,Ca,min-iron 8 mg-folic 1 tab PO DAILY 08/05/13 04/03/25 History acid 200 mcg-lycopene 600 mcg tablet (Centrum Ultra Men's) flaxseed 1,000 mg capsule 1,000 mg PO DAILY 06/06/15 04/03/25 History inulin 1.5 gram chewable tablet 1.5 gm PO DAILY 03/01/16 04/03/25 History (Fiber Choice (inulin)) tamsulosin 0.4 mg capsule (Flomax) 0.4 mg PO DAILY 03/01/16 04/03/25 History apixaban 5 mg tablet (Eliquis) 5 mg PO BID 08/17/21 04/03/25 History aspirin 81 mg tablet,delayed 81 mg PO DAILY 08/17/21 04/03/25 History release (Adult Aspirin Regimen) atorvastatin 80 mg tablet 80 mg PO HS 08/17/21 04/03/25 History dulaglutide 1.5 mg/0.5 mL 1.5 mg subcut QWEEK 08/17/21 04/03/25 History subcutaneous pen injector (Trulicity) fesoterodine 4 mg tablet,extended 4 mg PO DAILY 08/17/21 04/03/25 History release 24 hr (Toviaz) finasteride 5 mg tablet 5 mg PO HS 08/17/21 04/03/25 History furosemide 20 mg tablet See Rx Instructions PO DAILY 08/17/21 04/03/25 History metformin 1,000 mg tablet 1,000 mg PO BID 08/17/21 04/03/25 History metoprolol succinate 25 mg 12.5 mg PO HS 08/17/21 04/03/25 History tablet,extended release 24 hr potassium chloride 10 mEq 20 meq PO DAILY 08/17/21 04/03/25 History capsule,extended release Exam Narrative Exam Narrative: Well-appearing older gentleman laying in bed in no acute distress, ANO x 4, heart regular rhythm, lungs good auscultation bilaterally, abdomen soft, nontender, nondistended, right foot wrapped in bandage without surrounding erythema or drainage Results Labs 04/03/25 13:45 04/03/25 13:45 Labs: Laboratory Results - last 24 hr 04/03/25 04/03/25 04/03/25 13:45 14:40 16:22 WBC 10.01 RBC 4.57 Hgb 14.5 Hct 43.5 MCV 95 MCH 31.7 MCHC 33.3 RDW 15.7 H Plt Count 213 MPV 12.1 H Immature Gran % 0.8 Neutrophils % 88.9 Lymphocytes % 5.6 Monocytes % 4.2 Eosinophils % 0.3 Basophils % 0.2 Nucleated RBC % 0.0 Absolute Neutrophils 8.90 H Absolute Lymphocytes 0.56 L Absolute Monocytes 0.42 Absolute Eosinophils 0.03 Absolute Basophils 0.02 ESR 20 PT 10.5 INR 1.0 VBG Lactate 2.4 H* 2.3 H* Sodium 131 L Potassium 4.5 Chloride 97 L Carbon Dioxide 26.0 Anion Gap 8.0 BUN 25 H Creatinine 1.4 H Est GFR (CKD-EPI 2020) 53.40 Glucose 488 H Calcium 10.0 Magnesium 1.9 Total Bilirubin 2.8 H AST 54 H ALT 85 H Alkaline Phosphatase 348 H Troponin I 18 16 C-Reactive Protein 8.17 H Total Protein 7.9 Albumin 3.4 Procalcitonin < 0.10 04/03/25 16:25 WBC RBC Hgb Hct MCV MCH MCHC RDW Plt Count MPV Immature Gran % Neutrophils % Lymphocytes % Monocytes % Eosinophils % Basophils % Nucleated RBC % Absolute Neutrophils Absolute Lymphocytes Absolute Monocytes Absolute Eosinophils Absolute Basophils ESR PT INR VBG Lactate Sodium Potassium Chloride Carbon Dioxide Anion Gap BUN Creatinine Est GFR (CKD-EPI 2020) Glucose Calcium Magnesium Total Bilirubin AST ALT Alkaline Phosphatase Troponin I Cancelled C-Reactive Protein Total Protein Albumin Procalcitonin Last Vital Signs Temp 97.2 F L 04/03/25 13:01 Pulse 83 04/03/25 16:10 Resp 14 04/03/25 15:10 BP 132/84 04/03/25 14:46 Pulse Ox 98 04/03/25 16:10 PAWSS Have you Been Recently Intoxicated or Drunk Within the Last 30 days?: No Have you Ever Experienced Previous Episodes of Alcohol Withdrawal?: No Have you ever Experienced Withdrawal Seizures?: No Have you ever Experienced Delirium Tremens(DT)s?: No Have you ever undergone Alcohol Rehabilitation Treatment (i.e, inpt ot outpatient treatment programs)?: No Have you ever Experienced Blackouts?: No Have you ever Combined Alcohol with other Downers within the last 90 days?: No Have you ever Combined Alcohol with any other Substance of Abuse during the last 90 days?: No Positive Blood Alcohol level on Presentation? [PCS.BAL]: No Evidence of Increased Autonomic Activity (i.e. HR>120, tremor, sweating, agitation, nausea)?: No Result: 0 Time Spent Time spent with Patient: >75 minutes Time was spent: preparing to see the patient(eg.review tests), obtaining and/or reviewing separately otained hiistory, ordering medications,tests, procedures, referring, communicating with other health home care physical therapist, indepentently interpreting results, counseling the patient and care coordination
--- NOTE | 2025-04-03 19:35 | W.PC.ACHO ---
Registration Status: Primary Language: Preferred Language: ED Information & Data Chief Complaint Cellulitis 04/03/25 13:29 Other Complaint RashLesion 04/03/25 12:51 Triage Note Infection in 3rd digit of R 04/03/25 12:51 foot may have started a week ago. PT has had injuries and infections in feet/toes before and is concerned that this may need treatment to clear up. substantial redness, swelling in 3rd and 2nd digit of R foot noted on assessment. PT reports pain on TOP of foot (Hx of neuropathy) Medical / Surgical History (Last Reviewed 04/03/25 @ 18:18 by Dieudonne Camacho MD) H/O onychomycosis Hypokalemia CVA (cerebral vascular accident) Nephropathy Tendonitis of left rotator cuff (10/06/15) (Last Reviewed 04/03/25 @ 18:18 by Dieudonne Camacho MD) Colonoscopy - MAC (07/15/15) Most Recent Vital Signs Temperature 36.2 C L 04/03/25 13:01 Temperature Source Temporal Artery Scan 04/03/25 13:01 Pulse 79 04/03/25 18:31 Pulse 85 04/03/25 18:31 Respiratory Rate 16 04/03/25 18:31 Blood Pressure 133/85 04/03/25 18:31 Blood Pressure Mean 99 04/03/25 18:31 Pulse Oximetry 99 04/03/25 18:31 Allergies No Known Allergies Allergy (Unverified 03/07/16 06:45) Active Medications Generic Name Dose Route Start Last Admin Trade Name Freq PRN Reason Stop Dose Admin Iohexol 100 ml 04/03/25 15:30 04/03/25 15:21 Omnipaque 350 Mg/Ml 100 Ml Btl IJ 05/03/25 23:59 100 ml DIRECTED OKSANA Administration Iohexol 50 ml 04/03/25 16:00 04/03/25 15:22 Omnipaque 350 Mg/Ml 50 Ml Btl IJ 05/03/25 23:59 50 ml DIRECTED OKSANA Administration Sodium Chloride 50 ml 04/03/25 15:30 04/03/25 15:21 Normal Saline - Diluent 50 Ml Vial IJ 50 ml .FOR DI USE OKSANA Administration IV IV Catheter Type [Left Forearm Peripheral IV ] IV Catheter Gauge [Left 18 Forearm] Diagnostics 04/03/25 04/03/25 04/03/25 Range/Units 16:25 16:22 14:40 WBC (4.4-10.8) 10^3/uL RBC (4.36-5.78) 10^6/uL Hgb (13.5-17.5) g/dL Hct (40.0-50.0) % MCV (80-95) fL MCH (27.0-33.0) pg MCHC (32.0-36.0) % RDW (11.8-14.1) % Plt Count (130-400) 10^3/uL MPV (8.0-11.0) fL Immature Gran % % Neutrophils % % Lymphocytes % % Monocytes % % Eosinophils % % Basophils % % Nucleated RBC % (0.0-0.3) % Absolute Neutrophils (1.2-6.7) 10^3/uL Absolute Lymphocytes (1.2-3.4) 10^3/uL Absolute Monocytes (0.1-0.8) 10^3/uL Absolute Eosinophils (0.0-0.7) 10^3/uL Absolute Basophils (0.0-0.2) 10^3/uL ESR (0-20) mm/hr PT (9.1-11.1) sec INR (0.9-1.1) VBG Lactate 2.3 H* (<or=2.0) mmol/L Sodium (136-145) mmol/L Potassium (3.5-5.1) mmol/L Chloride (98-107) mmol/L Carbon Dioxide (21.0-32.0) mmol/L Anion Gap (3-11) mmol/L BUN (7-18) mg/dL Creatinine (0.70-1.30) mg/dL Est GFR (CKD-EPI 2020) (mL/min/1.73m2) Glucose (74-106) mg/dL Calcium (8.5-10.1) mg/dL Magnesium (1.8-2.4) mg/dL Total Bilirubin (0.2-1.0) mg/dL AST (15-37) U/L ALT (16-63) U/L Alkaline Phosphatase (46-116) U/L Troponin I Cancelled 16 (<or=76) ng/L C-Reactive Protein (<or=0.5) mg/dL Total Protein (6.4-8.2) g/dL Albumin (3.4-5.0) g/dL Procalcitonin ng/mL 04/03/25 Range/Units 13:45 WBC 10.01 (4.4-10.8) 10^3/uL RBC 4.57 (4.36-5.78) 10^6/uL Hgb 14.5 (13.5-17.5) g/dL Hct 43.5 (40.0-50.0) % MCV 95 (80-95) fL MCH 31.7 (27.0-33.0) pg MCHC 33.3 (32.0-36.0) % RDW 15.7 H (11.8-14.1) % Plt Count 213 (130-400) 10^3/uL MPV 12.1 H (8.0-11.0) fL Immature Gran % 0.8 % Neutrophils % 88.9 % Lymphocytes % 5.6 % Monocytes % 4.2 % Eosinophils % 0.3 % Basophils % 0.2 % Nucleated RBC % 0.0 (0.0-0.3) % Absolute Neutrophils 8.90 H (1.2-6.7) 10^3/uL Absolute Lymphocytes 0.56 L (1.2-3.4) 10^3/uL Absolute Monocytes 0.42 (0.1-0.8) 10^3/uL Absolute Eosinophils 0.03 (0.0-0.7) 10^3/uL Absolute Basophils 0.02 (0.0-0.2) 10^3/uL ESR 20 (0-20) mm/hr PT 10.5 (9.1-11.1) sec INR 1.0 (0.9-1.1) VBG Lactate 2.4 H* (<or=2.0) mmol/L Sodium 131 L (136-145) mmol/L Potassium 4.5 (3.5-5.1) mmol/L Chloride 97 L (98-107) mmol/L Carbon Dioxide 26.0 (21.0-32.0) mmol/L Anion Gap 8.0 (3-11) mmol/L BUN 25 H (7-18) mg/dL Creatinine 1.4 H (0.70-1.30) mg/dL Est GFR (CKD-EPI 2020) 53.40 (mL/min/1.73m2) Glucose 488 H (74-106) mg/dL Calcium 10.0 (8.5-10.1) mg/dL Magnesium 1.9 (1.8-2.4) mg/dL Total Bilirubin 2.8 H (0.2-1.0) mg/dL AST 54 H (15-37) U/L ALT 85 H (16-63) U/L Alkaline Phosphatase 348 H (46-116) U/L Troponin I 18 (<or=76) ng/L C-Reactive Protein 8.17 H (<or=0.5) mg/dL Total Protein 7.9 (6.4-8.2) g/dL Albumin 3.4 (3.4-5.0) g/dL Procalcitonin < 0.10 ng/mL 04/03/25 14:57 Blood Culture - Pending Blood 04/03/25 13:45 Blood Culture - Pending Blood [id number] Documentation Fingerstick Glucose Start: 04/03/25 13:19 Freq: Status: Complete Protocol: Activity Type Activity Date Activity User E-sign Co-sign Detail Recorded Client Recorded Date Recorded By Document 04/03/25 13:18 BKG DAEMON(3) [id number] 04/03/25 13:19 BKG DAEMON(4) Fingerstick Glucose Start: 04/03/25 13:33 Freq: .Q1H Status: Active Protocol: Activity Type Activity Date Activity User E-sign Co-sign Detail Recorded Client Recorded Date Recorded By Document 04/03/25 18:06 NF [id number] 04/03/25 18:06 NF Intake and Output - 24 Hour Total 04/03/25 12:40 thru 04/03/25 17:19 Intake Total 1300 Balance 1300 Weight 136.078 kg Intake: IV 1300 Falls Risk Assessment History of Falls No History 04/03/25 13:00 Contributing Factors No Factors 04/03/25 13:00 Ambulatory Aids Independent 04/03/25 13:00 Tubes/Lines None 04/03/25 13:00 Gait Evaluation No gait disturbance 04/03/25 13:00 Cognition No cognitive impairment 04/03/25 13:00 Fall Total Score 0 04/03/25 13:00 Level of Risk Standard/Low Risk 04/03/25 13:00 Problems (Last Reviewed 04/03/25 @ 18:18 by Dieudonne Camacho MD) Elevated LFTs (Acute) Diabetic ulcer of foot associated with type 2 diabetes mellitus, with necrosis of muscle (Acute) Gangrene of toe of right foot (Acute) Hyperlipidemia (Acute) Hypertension (Chronic) Afib (Chronic) CAD (coronary artery disease) (Chronic) Diabetes mellitus type 2 in obese (Acute) v v v v v v v v v Sending and/or Receiving Nurses: Please use comment section below to note any information pertinent to the patient hand-off not included above. Information / Comments:No questions. Report received from: initial call to ED @[id number]. Nurse not available. Divya TORRES @ 0040.
[2025-04-03] MEDS: Finasteride 5 MG TAB PO (21:07)
[2025-04-03] MEDS: Normal Saline Flush 10 ML SYR IVP (21:08)
[2025-04-04] VITALS (10 sets, daily range): BP systolic 83–120; BP diastolic 50–77; PULSE 73–98; RESP 15–19; TEMP 35.9–36.9; O2SAT 93–99; BMI 32.8
[2025-04-04] MEDS: Normal Saline Flush 10 ML SYR IVP ×4 (01:51→20:35)
[2025-04-04] MEDS: PIPERACILLIN/TAZO 3.375 GM in Normal Saline 50 ML IVPB ×4 (01:51→20:34)
[2025-04-04 06:20] LABS: MCH 31.3 pg (27.0-33.0); MCHC 33.3 % (32.0-36.0); MCV 94 fL (80-95); MPV 11.3 fL (8.0-11.0); Platelet Count 176 10^3/uL (130-400); RBC 3.83 10^6/uL (4.36-5.78); RDW 15.9 % (11.8-14.1); RDW-SD 54.9 fL
[2025-04-04 06:34] LABS: Anion Gap 4.4 mmol/L (3-11); BUN 19 mg/dL (7-18); CO2 29.6 mmol/L (21.0-32.0); CREATININE 1.3 mg/dL (0.70-1.30); Calcium 8.8 mg/dL (8.5-10.1); Chloride 103 mmol/L (98-107); Estimated GFR 58.37 (mL/min/1.73m2); Glucose 327 mg/dL (74-106); Magnesium 1.8 mg/dL (1.8-2.4); Potassium 4.1 mmol/L (3.5-5.1); Sodium 137 mmol/L (136-145)
--- NOTE | 2025-04-04 07:10 | W.PM.PROGNOT ---
Date of Service Date of service: 04/04/25 Time of Service: 06:20 Assessment and Plan Assessment and plan (1) Diabetic ulcer of foot associated with type 2 diabetes mellitus, with necrosis of muscle: Status: Acute (2) Gangrene of toe of right foot: Status: Acute Assessment and plan: Bryan is a 70-year-old who has necrosis of the right third toe with some adjacent cellulitis about the foot. I discussed this at length with him yesterday and now once again. After thinking about last night he would like to proceed with third toe amputation and surgical debridement for the infection. There is been no other changes to his clinical profile from yesterday. I once again reviewed the surgical details. I would likely perform an amputation through the proximal phalanx of the third toe but would also consider disarticulation if necessary for closure. The plantar skin looks relatively nonviable about the toe and the dorsal skin does have signs of erythema. Nevertheless, it should be able to close it with a dorsal based flap. There is a chance he needs a second procedure for wound closure. There is also the potential possibility of worsening infection with need for recurrent incision and drainage. Assuming there is no gross purulence or necrotic tissue more proximal to the toe, I would plan for primary closure. I discussed expectations afterwards. Will continue with the IV antibiotics for at least another 24 to 48 hours pending evaluation intraoperatively. All of his questions were answered. We will move forward with surgery this morning. Subjective Subjective Interval history since last seen: Bryan reports overall to feeling slightly better. He finds that the pain itself which he was having the foot is a little bit better. No other new symptoms. No chest pain shortness of breath. No fevers or chills. He has been receiving Zosyn. Exam Narrative Exam Narrative: Evaluation of the right foot shows erythema still over the dorsum of the foot but not expanding from previous evaluation. No extension onto the 2nd or 4th toes. Area of subtle or subacute necrosis of the tip of the second toe looks no different than yesterday without any lamination of the skin layers or signs of infection. Objective Last Vital Signs Temp 36 C L 04/04/25 03:22 Pulse 85 04/04/25 03:22 Resp 19 04/04/25 03:22 BP 103/73 04/04/25 03:22 Pulse Ox 96 04/04/25 03:22 Laboratory Results - last 24 hr 04/03/25 04/03/25 04/03/25 13:45 14:40 16:22 WBC 10.01 RBC 4.57 Hgb 14.5 Hct 43.5 MCV 95 MCH 31.7 MCHC 33.3 RDW 15.7 H Plt Count 213 MPV 12.1 H Immature Gran % 0.8 Neutrophils % 88.9 Lymphocytes % 5.6 Monocytes % 4.2 Eosinophils % 0.3 Basophils % 0.2 Nucleated RBC % 0.0 Absolute Neutrophils 8.90 H Absolute Lymphocytes 0.56 L Absolute Monocytes 0.42 Absolute Eosinophils 0.03 Absolute Basophils 0.02 ESR 20 PT 10.5 INR 1.0 VBG Lactate 2.4 H* 2.3 H* Sodium 131 L Potassium 4.5 Chloride 97 L Carbon Dioxide 26.0 Anion Gap 8.0 BUN 25 H Creatinine 1.4 H Est GFR (CKD-EPI 2020) 53.40 Glucose 488 H Calcium 10.0 Magnesium 1.9 Total Bilirubin 2.8 H AST 54 H ALT 85 H Alkaline Phosphatase 348 H Troponin I 18 16 C-Reactive Protein 8.17 H Total Protein 7.9 Albumin 3.4 Procalcitonin < 0.10 04/03/25 04/04/25 16:25 06:04 WBC 8.90 RBC 3.83 L Hgb 12.0 L D Hct 36.0 L MCV 94 MCH 31.3 MCHC 33.3 RDW 15.9 H Plt Count 176 MPV 11.3 H Immature Gran % Neutrophils % Lymphocytes % Monocytes % Eosinophils % Basophils % Nucleated RBC % Absolute Neutrophils Absolute Lymphocytes Absolute Monocytes Absolute Eosinophils Absolute Basophils ESR PT INR VBG Lactate Sodium 137 Potassium 4.1 Chloride 103 Carbon Dioxide 29.6 Anion Gap 4.4 BUN 19 H Creatinine 1.3 Est GFR (CKD-EPI 2020) 58.37 Glucose 327 H Calcium 8.8 Magnesium 1.8 Total Bilirubin AST ALT Alkaline Phosphatase Troponin I Cancelled C-Reactive Protein Total Protein Albumin Procalcitonin PAWSS Have you Been Recently Intoxicated or Drunk Within the Last 30 days?: No Have you Ever Experienced Previous Episodes of Alcohol Withdrawal?: No Have you ever Experienced Withdrawal Seizures?: No Have you ever Experienced Delirium Tremens(DT)s?: No Have you ever undergone Alcohol Rehabilitation Treatment (i.e, inpt ot outpatient treatment programs)?: No Have you ever Experienced Blackouts?: No Have you ever Combined Alcohol with other Downers within the last 90 days?: No Have you ever Combined Alcohol with any other Substance of Abuse during the last 90 days?: No Positive Blood Alcohol level on Presentation? [PCS.BAL]: No Evidence of Increased Autonomic Activity (i.e. HR>120, tremor, sweating, agitation, nausea)?: No Result: 0 Time Spent with Patient Time Spent with Patient: <25 minutes Time was spent: preparing to see the patient(eg.review tests), obtaining and/or reviewing separately otained hiistory and counseling the patient
--- NOTE | 2025-04-04 07:19 | ANES.PREOP_ITS ---
General Info Date of Service Date Performed: 04/04/25 Height: 6 ft 4 in Weight: 122.47 kg Body Mass Index (BMI): 32.8 Surgical Procedure: Operation Date: 04/04/25 07:15 Proposed Procedure Side Surgeon p Foot Toe Amputation Left Dieudonne Camacho MD Actual Procedure Side Surgeon p Foot Toe Amputation, 3rd Toe Right Dieudonne Camacho MD Meds Allergies and Home Medications Allergies Allergy/AdvReac Type Severity Reaction Status Date / Time No Known Allergies Allergy Unverified 03/07/16 06:45 Home Medication ?Medication ?Instructions ?Recorded glucosamine-chondroitin 250 mg-200 2 tab PO DAILY 08/05/13 mg tablet (Osteo Bi-Flex) loperamide 2 mg-simethicone 125 mg 1 tab PO DIRECTED PRN 08/05/13 tablet (Imodium Multi-Symptom Relief) multivit,Ca,min-iron 8 mg-folic 1 tab PO DAILY 08/05/13 acid 200 mcg-lycopene 600 mcg tablet (Centrum Ultra Men's) flaxseed 1,000 mg capsule 1,000 mg PO DAILY 06/06/15 inulin 1.5 gram chewable tablet 1.5 gm PO DAILY 03/01/16 (Fiber Choice (inulin)) tamsulosin 0.4 mg capsule (Flomax) 0.4 mg PO DAILY 03/01/16 apixaban 5 mg tablet (Eliquis) 5 mg PO BID 08/17/21 aspirin 81 mg tablet,delayed 81 mg PO DAILY 08/17/21 release (Adult Aspirin Regimen) atorvastatin 80 mg tablet 80 mg PO HS 08/17/21 dulaglutide 1.5 mg/0.5 mL 1.5 mg subcut QWEEK 08/17/21 subcutaneous pen injector (Trulicity) fesoterodine 4 mg tablet,extended 4 mg PO DAILY 08/17/21 release 24 hr (Toviaz) finasteride 5 mg tablet 5 mg PO HS 08/17/21 furosemide 20 mg tablet See Rx Instructions PO DAILY 08/17/21 metformin 1,000 mg tablet 1,000 mg PO BID 08/17/21 metoprolol succinate 25 mg 12.5 mg PO HS 08/17/21 tablet,extended release 24 hr potassium chloride 10 mEq 20 meq PO DAILY 08/17/21 capsule,extended release Current Visit Medications: Current Medications Generic Name Dose Route Start Last Admin Trade Name Freq PRN Reason Stop Dose Admin Acetaminophen 325 - 650 mg 04/03/25 19:49 Acetaminophen 325 Mg Tab PO Q4H PRN PRN Dextrose 0 gm 04/03/25 19:49 Glucose Oral Gel 15 Gm/37.5 Gm Tube PO DIRECTED PRN Dextrose 0 gm 04/03/25 19:49 Glucose Oral Gel 15 Gm/37.5 Gm Tube PO DIRECTED PRN Dextrose/Water 0 gm 04/03/25 19:49 Dextrose 50%-Water 25 Gm/50 Ml Syr IVP DIRECTED PRN Docusate Sodium 100 mg 04/03/25 19:49 Docusate Sodium 100 Mg Cap PO TID PRN PRN Finasteride 5 mg 04/03/25 20:00 04/03/25 21:07 Finasteride 5 Mg Tab PO 5 mg HS [facility] Administration Piperacillin Sod/Tazobactam 50 mls @ 100 mls/hr 04/03/25 20:00 04/04/25 02:26 Sod 3.375 gm/ Sodium Chloride IVPB Infused Q6H [facility] Infusion IV Miscellaneous Supplies 1 each 04/03/25 13:30 Iv Access-Emergency Dept IV DIRECTED [facility] IV Miscellaneous Supplies 1 each 04/03/25 19:49 Iv Access IV DIRECTED [facility] Insulin Aspart 0 units 04/04/25 08:00 Insulin Aspart 300 Units/3 Ml Pen SC 0800,1200,1700 [facility] Protocol Iohexol 100 ml 04/03/25 15:30 04/03/25 15:21 Omnipaque 350 Mg/Ml 100 Ml Btl IJ 05/03/25 23:59 100 ml DIRECTED [facility] Administration Iohexol 50 ml 04/03/25 16:00 04/03/25 15:22 Omnipaque 350 Mg/Ml 50 Ml Btl IJ 05/03/25 23:59 50 ml DIRECTED [place] Administration Metoprolol Succinate 12.5 mg 04/03/25 20:00 04/03/25 21:16 Metoprolol Cr 25 Mg Tabcr PO Not Given HS [facility] Non-Formulary Medication 4 mg 04/04/25 08:30 Fesoterodine [Toviaz] PO DAILY [facility] Polyethylene Glycol 17 gm 04/03/25 19:49 Polyethylene Glycol 3350 17 Gm Packet PO DAILY PRN PRN Constipation Sodium Chloride 50 ml 04/03/25 15:30 04/03/25 15:21 Normal Saline - Diluent 50 Ml Vial IJ 50 ml .FOR DI USE [facility] Administration Sodium Chloride 0 ml 04/03/25 19:49 04/04/25 01:51 Normal Saline Flush 10 Ml Syr IVP 10 ml PRN PRN Administration Sodium Chloride 0 ml 04/03/25 20:00 04/03/25 21:53 Normal Saline Flush 10 Ml Syr IVP Not Given BID [facility] Sodium Chloride 0 ml 04/03/25 19:49 Normal Saline 10 Ml Vial IJ DIRECTED PRN Tamsulosin HCl 0.4 mg 04/04/25 08:30 Tamsulosin 0.4 Mg Capcr PO DAILY [facility] PFSH Active Problems Active Problems: Problem Status Onset Code 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 Elevated LFTs Acute R79.89 Diabetic ulcer of foot associated with type 2 diabetes mellitus, with necrosis of muscle Acute E11.621, L97.503 Gangrene of toe of right foot Acute I96 Dupuytren's contracture of right hand Acute M72.0 Chronic low back pain Acute M54.5, G89.29 Nephrolithiasis Chronic N20.0 MARSHAL (obstructive sleep apnea) Chronic G47.33 Hyperlipidemia Acute E78.5 Hypertrophic cardiomyopathy Acute I42.2 Hypertension Chronic I10 Afib Chronic I48.91 Osteoarthritis of left shoulder Acute M19.012 CAD (coronary artery disease) Chronic I25.10 Ventricular bigeminy Acute I49.8 Diabetes mellitus type 2 in obese Acute E11.69, E66.9 Colon cancer screening Acute Z12.11 Medical History Medical History H/O onychomycosis Hypokalemia CVA (cerebral vascular accident) Nephropathy Tendonitis of left rotator cuff (10/06/15) Surgical History Surgical History Colonoscopy - MAC (07/15/15) DR.TERRY MON Tobacco Smoking/Tobacco Use Status: Never Substance Use Substance use: Never Vital Signs and Lab Results Vital Signs Most Recent Vital Signs in EMR: Most Recent Vital Signs Temp Pulse Resp BP Pulse Ox 36.3 C L 85 17 83/50 L 93 04/04/25 07:08 04/04/25 07:08 04/04/25 07:08 04/04/25 07:08 04/04/25 07:08 Point of Care Results Point of Care Results: Finger Stick Blood Glucose 399 04/03/25 22:25 Lab Results 04/04/25 06:04 04/04/25 06:04 Blood Type / Crossmatch: 2 No Data to Display Complete Blood Count: 2 White Blood Count 8.90 10^3/uL (4.4-10.8) 04/04/25 06:04 Red Blood Count 3.83 10^6/uL (4.36-5.78) L 04/04/25 06:04 Hemoglobin 12.0 g/dL (13.5-17.5) L 04/04/25 06:04 Hematocrit 36.0 % (40.0-50.0) L 04/04/25 06:04 Platelet Count 176 10^3/uL (130-400) 04/04/25 06:04 Venous Blood Lactate 2.3 mmol/L (<or=2.0) H* 04/03/25 16:22 Complete Metabolic Panel: 2 Sodium 137 mmol/L (136-145) 04/04/25 06:04 Potassium 4.1 mmol/L (3.5-5.1) 04/04/25 06:04 Chloride 103 mmol/L (98-107) 04/04/25 06:04 Carbon Dioxide 29.6 mmol/L (21.0-32.0) 04/04/25 06:04 BUN 19 mg/dL (7-18) H 04/04/25 06:04 Creatinine 1.3 mg/dL (0.70-1.30) 04/04/25 06:04 Est GFR (CKD-EPI 2020) 58.37 (mL/min/1.73m2) 04/04/25 06:04 Magnesium 1.8 mg/dL (1.8-2.4) 04/04/25 06:04 Calcium 8.8 mg/dL (8.5-10.1) 04/04/25 06:04 Albumin 3.4 g/dL (3.4-5.0) 04/03/25 13:45 Glucose 327 mg/dL (74-106) H 04/04/25 06:04 C-Reactive Protein 8.17 mg/dL (<or=0.5) H 04/03/25 13:45 Liver Function Panel: 2 Alanine Aminotransferase (ALT/SGPT) 85 U/L (16-63) H 04/03/25 1 3:45 Aspartate Amino Transf (AST/SGOT) 54 U/L (15-37) H 04/03/25 13: 45 Coagulation Panel: 2 INR International Normalized Ratio 1.0 (0.9-1.1) 04/03/25 13:4 5 Prothrombin Time 10.5 sec (9.1-11.1) 04/03/25 13:45 Cardiac Panel: 2 Troponin I 16 ng/L (<or=76) 04/03/25 Arterial Blood Gas: 2 No Data to Display Venous Blood Gas: 2 No Data to Display Pancreas Panel: 2 No Data to Display Thyroid Panel: 2 No Data to Display Infectious Disease: 2 No Data to Display Blood Cultures: 2 No Data to Display Toxicology Panel: 2 No Data to Display Imaging and Studies Imaging and Studies Study information below may be from another EMR and interpreted by another provider. Please see original notes in EMR for more complete details. X-Ray Summary: Exam(s) XR FOOT RT COMPLETE EXAM: XR FOOT RT COMPLETE CLINICAL HISTORY: Injury. TECHNIQUE: 2D digital imaging was performed. COMPARISON: No exams were available for comparison FINDINGS: 3 views No evidence of acute fracture nor diastasis of the Lisfranc joint. Mild degenerative changes in the great toe metatarsophalangeal joint. There is an accessory ossicle on the medial aspect of the foot adjacent to the navicular tuberosity. Some degenerative changes are noted at the tarsometatarsal joints. IMPRESSION: No acute osseous findings. CT Summary: Exam(s) CT ABD AORTA CTA W RUNOFF EXAM: CT ABD AORTA CTA W RUNOFF CLINICAL HISTORY: Vascular status, sepsis. TECHNIQUE: Imaging Protocol: Axial computed tomography images with coronal and sagittal reformatted images were created and reviewed CONTRAST MATERIAL: Intravenous: Omnipaque 350 Contrast volume:150cc Oral: None COMPARISON: No exams were available for comparison FINDINGS: z ABDOMEN: There is no evidence of abdominal aortic aneurysm. There is no significant stenosis at the origin of the celiac, SMA, and renal arteries. The inferior mesenteric artery is patent. There is a focal nonobstructive dissection in the abdominal aorta just above the inferior mesenteric artery takeoff point. Intimal flap does not extend to nor beyond the aortic bifurcation. There is no significant stenosis at the aortic bifurcation. There is moderate atherosclerotic involvement of the left common iliac artery. There is mild arterial megaly of this vessel with diameter of 1.3 cm. No large aneurysm here and no dissection flap. Lesser involvement of the right common iliac artery. There is no stenosis at the junction of the common and external iliac arteries on either side and there is no significant atherosclerotic narrowing of either external iliac artery. There is, however, tight stenosis at the origin of the left internal iliac artery without significant poststenotic dilatation. There is no significant stenosis at the origin of the right internal iliac artery. Both common femoral arteries are patent both SFA arteries throughout the length of the bilateral thighs exhibit no evidence of hemodynamically significant stenosis. They are continuous with patent bilateral popliteal arteries which exhibit no significant narrowing nor aneurysms. With respect of the calf runoff vessels, on the left side the tibioperoneal trunk is patent without significant stenosis. There is no difficult stenosis at the origin of the left anterior tibial artery although this artery is discontinuous in the mid-lower calf. The left posterior tibial artery is the dominant runoff vessel and extends in continuous fashion through the length of the calf to and beyond the medial malleolus. The left peroneal artery is patent throughout its length to the lower calf level. The right calf runoff also exhibits a dominant right posterior tibial artery which reaches to and beyond the medial malleolus. The right anterior tibial artery has a high popliteal level takeoff point and is patent to the upper calf level. The right peroneal artery descends to the mid calf level. There are no abnormal masses nor fluid collections in the lower extremities although there is subcutaneous edema noted below the knee bilaterally. There is no evidence of abscess. No obvious fractures nor osseous lesions. There is some gas incidentally noted in the right foot at the level of the mid-distal phalanges of the 3rd toe. There is no obvious fracture nor obvious evidence of osteomyelitis at this level. LIVER: There are no focal hepatic lesions nor dilatation of intrahepatic ducts. GALLBLADDER/BILIARY: Cholelithiasis without evidence of acute cholecystitis. CBD is not dilated. PANCREAS: No evidence of pancreatic mass nor dilatation of the pancreatic duct. SPLEEN: Spleen is not enlarged. There are no intrasplenic lesions. ADRENALS: There are no significant adrenal masses. KIDNEYS: There is a benign cyst in the anterior cortex of the left kidney which measures 1 cm and another slightly larger cyst in the anterior cortex lower down measuring 1.6 cm. There is a benign cyst in the medial cortex of the right kidney measuring 2 cm and another cyst measuring 1.7 cm also in the lateral cortex of the right kidney. And others benign cysts noted in the inferior pole the right kidney measuring 1.3 cm. There is a 4 millimeter nonobstructive calculus in the right kidney. There is no hydronephrosis thorough hydroureter on either side no obvious findings in the urinary bladder. Prostate size upper normal. Seminal vesicles unremarkable.. ABDOMINAL AORTA: See above LYMPH NODES: There is no retroperitoneal nor para-aortic adenopathy. No obvious mesenteric masses. ABDOMINAL WALL: No evidence of significant anterior abdominal wall hernia. GI: There is no evidence of bowel obstruction, free air, nor abscess.There are no ischemic appearing bowel loops. No evidence of diverticulitis nor appendicitis. PELVIS: LYMPH NODES: There is no intrapelvic nor inguinal adenopathy. URINARY BLADDER: No calculi nor masses evident REPRODUCTIVE: Prostate size upper normal. Seminal vesicles unremarkable. OSSEOUS: No significant osseous lesions. No fractures. Slight loss of height of superior endplate L2 noted which is not acute. There are multiple Schmorl's node invaginations in the superior endplate of L2 vertebral body at this level. IMPRESSION: 1. No evidence of abdominal aortic aneurysm nor significant iliac artery aneurysms nor popliteal artery aneurysms. 2. 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 3. There is atherosclerotic involvement of the common iliac arteries, more so on the left side but without hemodynamically significant stenosis. There is, however, a significant stenosis of approximately 80 percent at the origin of the left internal iliac artery. No obvious poststenotic dilatation of the left internal iliac artery at this level. 4. There is 2 vessel runoff in both calves noted, as detailed above. The dominant runoff artery in both calves is the posterior tibial artery. 5. There appears to be some gas in the soft tissues of the 3rd toe of the right foot. There does not appear to be obvious adjacent bone destruction. If clinically indicated follow-up MRI of the foot-toes could be performed for added sensitivity/specificity with respect osteomyelitis. There are no obvious fractures evident. Anesthesia Assessment and Plan Anesthesia History Personal History: No History of Anesthesia Complications Family History: No Family History of Anesthesia Complications Exercise Tolerance Exercise Tolerance: Metabolic Equivalents<4 Pertinent Negatives Pertinent Negatives: No Symptoms of GERD, No Major Cardiovascular Symptoms or Complaints and No Major Pulmonary Symptoms or Complaints Cardiac & Pulmonary Exam Cardiac Exam: Normal S1/S2 Heart Sounds Pulmonary Exam: Clear Bilateral Breath Sounds Implantable Cardiac Device Does patient have a Pacemaker or an ICD?: No Airway Exam Known Difficult Airway: No Mallampati Class: 3 Mouth Opening: Normal (> 3cm) Thyromental Distance: Greater than 3 cm Neck Range of Motion: Full ROM Neck Circumference: Normal Teeth Condition: Normal Dentition ASA Classification ASA Score: ASA 3 Emergency Case?: No NPO Status NPO Status: NPO Clears >2 hours, Solids >8 hours Anesthesia Plan Resuscitation Status: Full Code Anesthesia Technique: General Anesthesia Airway Planned: Natural Airway Monitors Used: Standard Monitors Preoperative Comments:: Gluc check 344, will receive insulin just prior to going to OR
[2025-04-04] MEDS: Insulin Aspart 300 UNITS/3 ML PEN SC ×3 (07:44→17:05)
[2025-04-04] MEDS: Lactated Ringers 1,000 ML 30 ML IV (07:55)
[2025-04-04] MEDS: Bupivacaine 0.25% Pres-Free 30 ML VIAL (08:21)
--- NOTE | 2025-04-04 08:43 | ROE_ITS ---
Operative Note Operative Note PRE-OP DIAGNOSIS: Right Foot Cellulitis and 3rd Toe Necrosis POST-OP DIAGNOSIS: same PROCEDURE: Irrigation and Debridement of Right Forefoot with Transphalangeal Amputation of 3rd Toe SURGEON: Dieudonne Camacho ANESTHESIA TYPE: General:No Airway Refer to Anesthesia Record ESTIMATED BLOOD LOSS: 5 PATHOLOGY: other (Bone from the base of the middle phalanx was sent for culture in addition to anaerobic and aerobic swabs) TOURNIQUET TIME: 0 COMPLICATIONS: None Patient was transported to: floor Patient's condition: stable Indications: Bryan is a 70-year-old who developed necrosis of the third toe with some surrounding cellulitis. Given the obvious gangrenous situation of the toe I recommended amputation with irrigation debridement of the forefoot. I discussed the treatment options with him. I discussed risk to include continued infection, bleeding, need for repeat procedures, pain, stiffness. Despite these risk, he elects to proceed. Findings: There was gross necrosis of the tip of the third toe. This demarcated itself around the level of the midportion of the middle phalanx. The skin was incised roughly at the level of the PIP joint where there was bleeding tissue noted. There is no extension or tracking of any tissue. No expressible purulence. A transplant show amputation through the proximal phalanx was performed and the skin was closed primarily. Procedure Description: Bryan was seen upstairs prior to proceeding to the operating room. His identity was confirmed and the correct side was identified. The consent was reviewed the patient and signed. He was taken back to the operating room and kept on the stretcher with his right foot overhanging the end of the stretcher. A general anesthetic was administered without airway. He had received his usual antibiotics on the floor. The right foot was then prepped with Betadine and draped in a standard fashion. A timeout was performed for safe surgery. A digital block was performed somewhat proximal in the forefoot creating a field type block at the level of the metacarpals utilizing 0.25% bupivacaine. I then proceeded with resection of the necrotic portion of the toe. A oblique line through the PIP joint was made dorsally and aiming for the flexion crease plantarly where the skin demarcated itself. This was taken sharply through the skin down to the bone and the toe was resected through the PIP joint. A sample of bone from the base of the middle phalanx was then sent for culture. There was bleeding tissue throughout the entire circumference of this cut section. There is no tracking or tunneling. I then took anaerobic and aerobic swabs from both dorsal and plantar aspects of the proximal phalanx to send for culture. There is no significant necrotic tissue. The resection level seem to remove all necrotic appearing tissue. I then irrigated the toe with a liter of normal saline. Once again I do not see any tracking or tunneling. Pressure was applied to the dorsum of the foot and there was no expressible purulence or fluid. I then resected soft tissues off of the proximal phalanx and resected the proximal phalanx about midway. This provided extra room for closure. These tissues were once again inspected. I debulked some of the plantar tissue. I th en irrigated once again with normal saline. At this point I had bleeding tissue with no signs of necrosis. A closure was then performed without significant stress or tension on the skin. This was done using #3-0 nylon. The edges of the closure were incised in a V-shaped pattern to remove some of the dogear. This was closed primarily without any significant concern. The second toe was also briefly inspected during the case which had an area of questionable necrosis on a very small portion of the dorsal aspect of the tip of the second toe. There is no lamination of the tissue. There is no instability of the nail. There is no emphysema with palpation and there is no cellulitis. Therefore, no intervention was performed of the second toe. The foot was then cleaned and Xeroform was applied to the surgical site. This was followed by 4 x 4's in between the 2nd and 4th toes along with a Kerlix wrap. He was placed into a postop shoe. At the end the case all counts are correct. Cultures were sent. He may be weightbearing as tolerated with the postop shoe. Will continue to follow cultures and specify antibiotics although I think the majority of this was derived from the necrotic tissue. Continue to work on strict glucose control. Date of Procedure: 04/04/25
--- NOTE | 2025-04-04 08:47 | W.ANESPOSTOP ---
Postoperative Evaluation Date, Time and Location Date Performed: 04/04/25 Time Performed: 08:41 Patient Location: Med/Surg Vital Signs Most Recent Imported Vital Signs: Most Recent Vital Signs Temp Pulse Resp BP Pulse Ox 35.9 C L 73 17 110/77 96 04/04/25 08:40 04/04/25 08:40 04/04/25 07:08 04/04/25 08:40 04/04/25 08:40 Pain Score Most Recent Pain Score: Most Recent Pain Score Pain Level 0 04/04/25 03:22 Assessment Mental Status: Awake (Alert & Oriented to Patient Baseline) Airway and Respiratory Function: Patent airway with normal (patient baseline) respiratory exam Cardiovascular Function: Hemodynamically Stable Hydration Status: Adequately Hydrated Nausea & Vomiting: No Nausea or Vomiting Pain: Pt. Denies Any Pain Peripheral Nerve Block: Patient did not receive a nerve block
--- NOTE | 2025-04-04 10:04 | PDOC.CMIN ---
Date of service: 04/04/25 Time of Service: 10:04 Care Management Initial Assmt Initial Assessment Reason for Hospitalization: cellulitis of right foot Functional Status/Living Situation Patient Presentation: Bryan presented to the Ed yesterday afternoon with c/o a right foot injury. He was unsure of when the injury actually occurred. He has peripheral neuropathy due to diabetes. His right foot was swollen, especially the 3rd and 4th toe, with redness extending up to his crow. Bryan was seen by ortho, and went to the OR this morning for amputation of that 3rd toe. He was seen by CM post-op. He was looking well. Bryan stated that he was actually feeling pretty good. The top of his foot is very sore from the infection, however. Bryan does not remember injuring his foot, and truly did not know how bad it was. Bryan was being visited by his , Jacqueline, when CM met him. Both were very pleasant and in good spirits. They have been for 50 years and have 3 children, one of whom lives next door to them. Bryan is now retired. He had worked for an [employer] company and often did work at the [employer]. Bryan is independent at baseline. He and Jacqueline have enjoyed travelling since long term, and plan to go on an [employer] in June. Town of Residence: [place], [place] Resides with: Spouse (Jacqueline) Significant Other/Family: Local ( Jacqueline, children Jessica Malave, and Walker - who lives in [place]) Natural Supports: family Employment Status: Retired Instrumental Activities of Daily Living (ADLs): Independent Activities/Hobbies/SocialSupport: enjoys travelling Medications Medication Management: No Issues/Barriers identified Physical Functioning/Mobility Assistive Device: outpatient PT is recommended by PT beeal today Advance Directives Advance Directives: Do you have an Advance Directive: Y 04/03/25 15:13 AD On File at [facility]: Y 04/03/25 15:13 Date Asked 04/03/25 04/03/25 13:15 AD Date Reviewed 04/03/25 04/03/25 15:13 COLST On File at [facility] No 04/03/25 15:13 COLST Date Scanned Code Status Resuscitation Status Full Code Insurance Coverage/Financial Issues Insurance: Medicare Part A & B - BC/BS Out of State? Care Team Visit Care Team Role Provider Type Bryan Hammond MD [facility] STAFF PHYSICIAN Mert Hurley Primary Care Provider NON-[facility] STAFF PHYSICIAN Dieudonne Camacho MD Other Providers [facility] STAFF PHYSICIAN Odell Daily Other Providers OTHER Carolina Jauregui Emergency Provider NURSE PRACTITIONER Brad Santo MD Admit Provider [facility] STAFF PHYSICIAN Attending Provider Discharge Potential Discharge Needs: PCP F/U Appt and Surgical F/U Appt (ortho) Anticipated Barriers to Discharge: None Identified Patient/Family Education Needs: Review discharge instructions, discuss Ask Me Three Transportation: Private vehicle Plan: Anticipate that Bryan will be discharged home with no new services, once he is medically cleared. He will f/u with his PCP and the orthopedic surgeons. Bryan will be referred to outpatient physical therapy. He will transport home in a private vehicle and continue per his plan of care. CM will continue to follow and to update the plan as needed. Social Determinants of Health Screening Social Determinants of health last assessed in clinic: 04/04/25 Will the Patient Participate in the Screening?: Yes Do you worry about having a steady place to live?: no Problems where you live: no known problems In the past 12 months, have you had to go without electric, gas, oil or water in your home?: no 1. Within the past 12 months, we worried whether our food would run out before we got money to buy more.: Never true 2. Within the past 12 months, the food we bought just didn't last and we didn't have money to get more.: Never true Has lack of transportation kept you from medical appointments or from doing things needed for daily living?: no Has anyone in your life made you feel unsafe or unsupported?: no How hard is it for you to pay for the very basics like food, housing, medical care, and heating? Would you say it is:: Not hard at all Do you want help finding or keeping work or a job?: I do not need or want help If for any reason you need help with day-to-day activities such as bathing, preparing meals, shopping, managing finances, etc., do you get the help you need?: I don?t need any help How often do you feel lonely or isolated from those around you?: Never Do you speak a language other than Irish at home?: No Does the patient want assistance with any of the above?: No PFSH All Active Problems (Updated 04/03/25 @ 20:35 by Carolina Jauregui) Dissection of infrarenal aorta (Acute) Elevated LFTs (Acute) Diabetic ulcer of foot associated with type 2 diabetes mellitus, with necrosis of muscle (Acute) Gangrene of toe of right foot (Acute) Dupuytren's contracture of right hand (Acute) Chronic low back pain (Acute) Nephrolithiasis (Chronic) MARSHAL (obstructive sleep apnea) (Chronic) Hyperlipidemia (Acute) Hypertrophic cardiomyopathy (Acute) Hypertension (Chronic) Afib (Chronic) Osteoarthritis of left shoulder (Acute) CAD (coronary artery disease) (Chronic) Ventricular bigeminy (Acute) Diabetes mellitus type 2 in obese (Acute) Colon cancer screening (Acute) Medical History H/O onychomycosis Hypokalemia CVA (cerebral vascular accident) Nephropathy Tendonitis of left rotator cuff (10/06/15) Surgical History Colonoscopy - MAC (07/15/15) DR.TERRY MON Social History Smoking/Tobacco Use Status: Never Smoking risk assessment performed?: Yes Drug use: Never Housing: house Current gender identity: male Readmission Within the Past 30 Days Yes or No: No
[2025-04-04] MEDS: Tamsulosin 0.4 MG CAPCR PO (10:11)
--- NOTE | 2025-04-04 11:17 | PT.INIE ---
PT Notes Visit Reasons: Toe infection Inpatient Physical Therapy Evaluation Date: 08/05/2025 Referring Doctor: Dr. Camacho PT Orders: PT CONSULT: Status post Ortho surgery Precautions: Weightbearing as tolerated with postop shoe and assistive device Patient Profile/Admitting Diagnosis: Patient is a 70-year-old male referred for physical therapy consultation secondary to third toe amputation due to complications with diabetes performed by Dr. Camacho on this date. He presented with diabetic ulcer associated with type 2 diabetes right third toe with necrosis of muscle and gangrene of toe of right foot. He presented to the ED 04/03/2025 coming by his significant other with a chief complaint of right foot injury he is unsure of the exact time of the injury. He does have peripheral neuropathy, is also a diabetic. He does have some erythema extending up into his proximal right crow. He is an insulin-dependent diabetic, history of onychomycosis, hypokalemia CVA nephropathy, hyperlipidemia and A-fib. PMHX: PFSH <Ella Oquendo NP - Last Filed: 04/03/25 16:00> All Active Problems Dupuytren's contracture of right hand (Acute) Chronic low back pain (Acute) Nephrolithiasis (Chronic) MARSHAL (obstructive sleep apnea) (Chronic) Hyperlipidemia (Acute) Hypertrophic cardiomyopathy (Acute) Hypertension (Chronic) Afib (Chronic) Osteoarthritis of left shoulder (Acute) CAD (coronary artery disease) (Chronic) Ventricular bigeminy (Acute) Diabetes mellitus type 2 in obese (Acute) Colon cancer screening (Acute) Medical History H/O onychomycosis Hypokalemia CVA (cerebral vascular accident) Nephropathy Tendonitis of left rotator cuff (10/06/15) Surgical History Colonoscopy - MAC (07/15/15) DR.TERRY MON Social History/Home Situation: Lives in single level dwelling with his 2 adult daughters and with 3 stairs and railing upon entry. Current Functional Limitations: Community distance ambulation Equipment Owned/DME: None Subjective: Bryan states that he is feeling well. No specific pain to complain of. Does not really recall talking to Dr. Camacho after the surgery but his was there for their postop discussion. Objective: General Observation: Upon entry into patient room patient was in bathroom. Independent ambulation with front wheel walker from the toilet to bedside chair. Right foot placed in postop shoe with gauze and bandage over OpSite. Skin discoloration bilateral lower extremity shins anterior and medial. Mental Status. Pleasant, alert and oriented x 3 Pain: 0/10 reported in sitting 2/10 at worst with ambulation Vital Signs: Closely monitored via nursing ROM: Right Upper Extremity: Glenohumeral joint flexion 130, abduction 125, elbow flexion and extension within normal limits. Active wrist flexion extension within normal limits. Left Upper Extremity: Glenohumeral joint flexion 140 degrees, abduction 130, elbow flexion and extension within normal limits. Active wrist flexion extension within normal limits. Right Lower Extremity: Hip flexion 115, abduction 35, knee flexion and extension within normal limits, dorsiflexion 10 degrees, plantarflexion 35 degrees. Left Lower Extremity: Hip flexion, abduction, knee flexion extension and ankle dorsiflexion plantarflexion within normal limits. Strength: Right Upper Extremity: Glenohumeral joint flexion, abduction, elbow flexion, extension 4/5. Good environmental compliance manager Left Upper Extremity: Glenohumeral joint flexion, abduction, elbow flexion, extension 4/5. Good environmental compliance manager Right Lower Extremity: Hip flexion 4 -/5, seated hip adduction 4+/5, seated hip abduction 4/5, knee flexion 4 -/5, knee flexion 4/5, ankle plantarflexion and dorsiflexion 4/5 Left Lower Extremity: Hip flexion 4+/5, seated hip abduction and adduction 4+/5, knee flexion 4/5, knee extension 4+/5, ankle plantarflexion dorsiflexion 4+/5 Sensation: Reports intact sensation bilateral lower extremitie. Unable to test OpSite secondary to postsurgical dressings. Surgical site being monitored by nursing Bed Mobility/Transfers: Sit?stand: Standby assist to front wheel walker Stand?sit: Standby assist from front wheel walker Sit?supine: Independent Bed mobility: Independent Gait: Patient ambulates 50 feet with contact-guard x 1 with use of front wheel walker Balance: Static Sitting: Good Dynamic Sitting: Good Static Standing: Good Dynamic Standing: Good Negative Romberg. Patient able to main attain partial tandem 10 seconds left/right foot anterior Tandem and single-leg stance deferred. Special Tests: Mobility Limitations Standardized Measure [facility] 6 clicks Basic Mobility Inpatient Short Form: Raw Score: 21 CMS Score: 29% Informed Consent/Education: Patient instructed in purpose of PT consult and plan of care. Assessment: Patient is a 70 year old male referred to physical therapy services with the diagnosis of diabetic ulcer associated with type 2 diabetes right third toe with necrosis of muscle, gangrene of toe of right foot status post right third toe amputation. Patient presents with clinical signs and symptoms consistent with above diagnosis, as demonstrated by the following impairment level findings: Muscle performance and motor function associated with surgical amputation right third toe. Impairments are contributing to the following functional limitations: AMPAC score. Patient presents with clinical signs and symptoms consistent with current/admitting diagnoses that have resulted to mobility limitations, gait instability, generalized weakness, and overall ADL decline as demonstrated by the following impairment level findings: 1. Decreased strength to R LE major muscle groups 2. Impaired standing balance 3. Impaired activity tolerance Impairments are contributing to the following functional limitations: 1. Decline in transfer skills 2. Difficulty with ambulation without assistive device and physical assistance 3. Difficulty with managing steps alone safely Patient is assessed as a X Low 97505 [] Moderate 42108 [] High 14557 complexity based on the following: History: 70-year-old male with past medical history listed above Examination: 29% [facility] mobility inpatient Short form Presentation: Stable Decision Making: Low 75010 Goals: Goals X1 week 1. Supine-Sit : Independent (I) 2. Sit-Supine : I 3. Sit-Stand : I 4. Stand-Sit : I 5. Bed-Chair : I 6. Chair-Bed: I 7. Gait : Patient ambulating greater than 250 feet with least required assistive device independently 8. Stairs: Able to perform 3 stairs with use of hand railing independently 9. Independent with home exercise program Plan of Care/Treatment Plan: 1-2x/day, 7 days/week x 1 week. Plan of care has been reviewed with the PUBLIC HEALTH AIDE providing the service under Physical Therapy direction. Initiate Physical Therapy intervention for strengthening, bed mobility, transfers, gait, stairs, balance training, use of assistive device. DISCHARGE RECOMMENDATIONS: [] Home with no services X Home with services [outpatient PT] : Lower extremity strengthening, cardiovascular endurance exercise, proprioceptive balance activities [] Home with outpatient PT [] [] SNF for continued rehabilitation [] [] Plug Machine Operator Care [] [] SNF versus LTC based on ability to participate and progress [] TREATMENT CODE/TIME: 96909 Initial evaluation: 25 minutes 10:50-11:15 Thank you for this consult. Mina Centeno PT, DPT Disclaimer: This note was created using [employer] voice recognition software. It was reviewed for major content. However, there may be multiple small discrepancies and errors due to the voice recognition aspects of the software.
--- NOTE | 2025-04-04 19:00 | W.PM.PROGNOT ---
Date of Service Date of service: 04/04/25 Time of Service: 11:10 Assessment and Plan Assessment and plan (1) Gangrene of toe of right foot: Status: Acute Assessment and plan: - Gangrene right third toe, POD #0 s/p amputation/debridement with [place]. - Imaging showed gas, likely chronically poor microvascular blood flow to the toe or embolic type of event leading to the toe necrosing then resulting in presence of gaseous gangrene - Patient was started on Vanco and Zosyn in the emergency department, continue pip/tazo to cover typical skin and pseudomonas with diabetic foot wound. Operative culture pending. (2) Diabetes mellitus type 2 in obese: Status: Acute Assessment and plan: - With recent profound hyperglycemia with catabolic state, recently started on basal insulin by PCP along with GLP-1 and metformin that previously controlled his sugars. - Started at 10units and was titrating, 22 units (0.2/kg) is safe dose, titrate up with monitoring. - Sliding scale insulin, carb consistent diet until n.p.o. at midnight as noted above (3) CAD (coronary artery disease): Status: Chronic Assessment and plan: - Resuming home medication. - typically I would recommend stopping ASA as unclear benefit for CAD on top of apixaban, but in this case with concern for microvascular PAD, will resume this as well (4) Afib: Status: Chronic Assessment and plan: - Resume home apixaban - Continue home metoprolol succinate 12.5 mg p.o. at bedtime (5) Hypertension: Status: Chronic Assessment and plan: - Resume home medication - Holding home prn furosemide (6) Elevated LFTs: Status: Acute Assessment and plan: -T. bili 2.8, AST 54, ALT 85, alk phos 348 -Has history of elevated total bilirubin noted to be 2.6 at the end of December 2024 -Likely MASLD given recent hyperglycemia. Continue statin. -follow-up CMP Subjective Subjective Patient reports: tolerating a regular diet and voiding w/o difficulty; denies nausea, vomiting, shortness of breath or fever Interval history since last seen: Events: S/p toe amputation 5/11 am He feels okay after surgery. Not in pain. No fever. Ate some breakfast. He states his sugars have been high since october. Started glargine with PCP, sugars down mostly below 300 but still high. Not sure what changed. Lost 25lbs, urinating a lot, very thirsty Exam Narrative Exam Narrative: Well-appearing older gentleman sitting up on the side of the bed in no acute distress, ANO x 4, heart regular rhythm, lungs good auscultation bilaterally, abdomen soft, nontender, nondistended, right foot with bandage overamputated 3rd toe, minimal surrounding erythema/drainage Objective Last Vital Signs Temp 36.5 C 04/04/25 15:20 Pulse 87 04/04/25 15:20 Resp 16 04/04/25 15:20 BP 108/68 04/04/25 15:20 Pulse Ox 96 04/04/25 15:20 Laboratory Results - last 24 hr 04/04/25 06:04 WBC 8.90 RBC 3.83 L Hgb 12.0 L D Hct 36.0 L MCV 94 MCH 31.3 MCHC 33.3 RDW 15.9 H Plt Count 176 MPV 11.3 H Sodium 137 Potassium 4.1 Chloride 103 Carbon Dioxide 29.6 Anion Gap 4.4 BUN 19 H Creatinine 1.3 Est GFR (CKD-EPI 2020) 58.37 Glucose 327 H Calcium 8.8 Magnesium 1.8 PAWSS Have you Been Recently Intoxicated or Drunk Within the Last 30 days?: No Have you Ever Experienced Previous Episodes of Alcohol Withdrawal?: No Have you ever Experienced Withdrawal Seizures?: No Have you ever Experienced Delirium Tremens(DT)s?: No Have you ever undergone Alcohol Rehabilitation Treatment (i.e, inpt ot outpatient treatment programs)?: No Have you ever Experienced Blackouts?: No Have you ever Combined Alcohol with other Downers within the last 90 days?: No Have you ever Combined Alcohol with any other Substance of Abuse during the last 90 days?: No Positive Blood Alcohol level on Presentation? [PCS.BAL]: No Evidence of Increased Autonomic Activity (i.e. HR>120, tremor, sweating, agitation, nausea)?: No Result: 0 Time Spent with Patient Time Spent with Patient: 35-49 minutes Time was spent: preparing to see the patient(eg.review tests), obtaining and/or reviewing separately otained hiistory, ordering medications,tests, procedures, referring, communicating with other health home care and home health aides teacher, indepentently interpreting results, counseling the patient and care coordination
[2025-04-04] MEDS: Apixaban 5 MG TAB PO (20:34)
[2025-04-04] MEDS: Atorvastatin 40 MG TAB 80 MG PO (20:34)
[2025-04-04] MEDS: Metoprolol CR 25 MG TABCR 12.5 MG PO (20:34)
[2025-04-04] MEDS: Finasteride 5 MG TAB PO (20:34)
[2025-04-04] MEDS: Insulin Glargine 300 UNITS/3 ML PEN 22 UNITS SC (21:00)
[2025-04-05] MEDS: PIPERACILLIN/TAZO 3.375 GM in Normal Saline 50 ML IVPB ×3 (02:27→13:50)
[2025-04-05] MEDS: Normal Saline Flush 10 ML SYR IVP ×3 (02:27→13:50)
[2025-04-05 02:55] VITALS: BP 104/72; PULSE 90; RESP 18; TEMP 36.1; O2SAT 95
[2025-04-05 06:53] LABS: Anion Gap 4.5 mmol/L (3-11); BUN 16 mg/dL (7-18); CO2 28.5 mmol/L (21.0-32.0); CREATININE 1.1 mg/dL (0.70-1.30); Calcium 8.8 mg/dL (8.5-10.1); Chloride 105 mmol/L (98-107); Estimated GFR 71.32 (mL/min/1.73m2); Glucose 218 mg/dL (74-106); Potassium 3.7 mmol/L (3.5-5.1); Sodium 138 mmol/L (136-145)
[2025-04-05 07:06] LABS: ALT 83 U/L (16-63); AST 59 U/L (15-37); Albumin 2.3 g/dL (3.4-5.0); Alkaline Phosphatase 298 U/L (46-116); Bilirubin, Direct 0.5 mg/dL (0.0-0.2); Bilirubin, Total 1.7 mg/dL (0.2-1.0); Total Protein 5.9 g/dL (6.4-8.2)
[2025-04-05 07:16] VITALS: BP 100/76; PULSE 86; RESP 20; TEMP 35.9; O2SAT 96
[2025-04-05 07:32] VITALS: TEMP 35.6
[2025-04-05] MEDS: Insulin Aspart 300 UNITS/3 ML PEN SC ×2 (07:49→12:17)
[2025-04-05] MEDS: Apixaban 5 MG TAB PO (07:52)
[2025-04-05] MEDS: Aspirin E.C. 81 MG TABEC PO (07:52)
[2025-04-05] MEDS: Tamsulosin 0.4 MG CAPCR PO (07:52)
[2025-04-05 09:00] LABS: Lab Add On Test DONE
[2025-04-05 09:25] LABS: C-Reactive Protein 6.69 mg/dL (<or=0.5)
--- NOTE | 2025-04-05 10:27 | PTTR_ITS ---
PT Notes Visit Reasons: Toe infection Inpatient Physical Therapy Treatment Note [facility] Date: 04/05/2025 PRECAUTIONS:WBAT RLE with post op shoe SUBJECTIVE: Pt reports he is feeling well but doesn't have any strength or stamina yet. He is hopeful things will look good when Dr Camacho sees him today. PM Pt reports he will be going home later today. OBJECTIVE: Alert , pleasant male sidelying in bed with his feet off edge of bed. present. ? PAIN:Denied VITALS: ?seated: 108/69 , pulse 89, 98% on RA Therapeutic Activities (43027): Direct one-on-one instruction in dynamic activities to improve functional performance. ? BED MOBILITY/TRANSFERS? Rolling L/R: Independent Supine-sit: Independent? Sit-supine: Independent ? Sit-stand: Independent ? Stand-sit: Independent ? Bed-Chair: SBA with and without Bariatric FWW ?with post op shoe on right ? Chair-bed: SBA with and without Bariatric FWW with post op shoe on right Provided skilled cues and instruction on performance and technique throughout. Ambulation: Facilitated safe and correct performance of level surface ambulation covering a distance of 150ft x 2 feet using use bariatric front wheeled walker with SBA and wheelchair follow for safety. Pt required 1 sit rest d/t report of lightheadedness. Vitals as stated above . Did not report of any increased pain. Denied headache,and chest pain throughout activity. Minimal verbal cueing provided for AD management with turns, directional changes, and posture. Functional ambulation short distances without AD SBA 25 feet x 3 to simulate mobility within home in prep for discharge. ? Therapeutic Exercises (52903f): Direct one-on-one instruction in therapeutic exercises to develop strength, endurance, range of motion and flexibility. ? Exercises ? supine ankle DF/PF, SAQ , QS, GS BLE 10 reps? Provided skilled instruction in proper exercise performance ASSESSMENT:? Pt demonstrates good pacing with use of FWW for long distances. He able to ambulate short distances <25 feet without AD. He is concerned FWW will not fit through his narrow doorways . He requires assistance to properly adjust fit of post op shoe. His is able to perform . Pt and instructed in positioning to elevate LE and to reduce excessive PF and hip ER with use of blanket rolls at lateral thigh for rotation. Pt encouraged to perform therex to increase DF strength and reduce risk for foot drop. PLAN: 1-2x/day, 7 days/week x 1 week. Plan of care has been reviewed with the GAMING FLOOR SUPERVISOR providing the service under Physical Therapy direction. Initiate Physical Therapy intervention for strengthening, transfers, gait, stairs, balance training, use of assistive device. TREATMENT CODE/TIME: 05083, 17384/ [id number] 99029 / [id number] DISCHARGE RECOMMENDATION: Home with outpatient PT for Lower extremity strengthening, cardiovascular endurance exercise, proprioceptive balance activ ities
[2025-04-05 11:16] VITALS: BP 132/90; PULSE 89; RESP 12; TEMP 35.8; O2SAT 96
--- NOTE | 2025-04-05 13:27 | POCOE_ITS ---
Date of service: 04/05/25 Time of Service: 12:00 Assessment and Plan Assessment and plan (1) Gangrene of toe of right foot: Status: Acute (2) Nephropathy: (3) Diabetic ulcer of foot associated with type 2 diabetes mellitus, with necrosis of muscle: Status: Acute (4) Afib: Status: Chronic (5) CAD (coronary artery disease): Status: Chronic (6) PAD (peripheral artery disease): Status: Acute (7) Acquired hammertoes of both feet: Status: Acute (8) Blistered skin: Status: Acute (9) Corns and callosities: Status: Acute (10) Ulcer of left foot, limited to breakdown of skin: Status: Acute Assessment and plan: Patient was seen bedside today. Preulcerative lesion noted to the tip of the left third toe. Patient was advised this is at risk for developing ulceration. I recommend close follow-up with callus/ulcer management. He will benefit from toe elevators, shoes with a deep and wide toebox, accommodative inserts for the left foot. With respect to the right foot, I did take a look at the incision site to the right third toe which looks to be healing very well at this time, cellulitis appears to be resolving, there was mild sanguinous drainage on the inner layer of dressings no crepitus no bogginess no fluctuance no signs of dehiscence to the incision site at this time. Dressings were then applied with Xeroform, 4 x 4, Kerlix and an Bright wrap. Surgical shoe was applied. Patient to follow-up with Dr. Camacho postoperatively. I reviewed CTA, there is evidence for two-vessel runoff to the level of the calf however, difficult to assess to the level of the foot let alone the toes. Since he has developed gangrene recently I recommend consultation with vascular and this can be arranged outpatient. I discussed this in detail with the patient patient understands and agrees Patient to follow-up with me in the office within 1 to 2 weeks of discharge to help coordinate care/vascular referral. After that he may follow-up with his senior automation engineer as he states that is more convenient for him History of Present Illness Narrative: 70-year-old male patient with uncontrolled diabetes with A1c of 10.9, CAD, A- fib, hypertension, hyperlipidemia with recent amputation to the right third toe secondary to gas gangrene. Date of surgery 04/04/[address] Camacho. He reports a new ulcer forming to third toe. He is also concerned of his right second toe. He has a senior automation engineer in the [place] who he goes to see every 9 weeks and is planning on following up with. He states that he is unable to see his toes, they have stubbed them which resulted in a wound. Otherwise no other pedal complaints. Consults Consult date: 04/05/25 Requesting physician: Bryan Hammond Review of Systems Cardiovascular Comments: Diminished pedal pulses bilaterally. Hair growth absent bilaterally. Musculoskeletal Comments: Status post right third toe amputation Neurologic Comments: Loss of protective sensation bilateral lower extremity PFSH All Active Problems (Updated 04/05/25 @ 13:34 by Flower Holloway DPM) Ulcer of left foot, limited to breakdown of skin (Acute) Corns and callosities (Acute) Blistered skin (Acute) Acquired hammertoes of both feet (Acute) PAD (peripheral artery disease) (Acute) Dissection of infrarenal aorta (Acute) Elevated LFTs (Acute) Diabetic ulcer of foot associated with type 2 diabetes mellitus, with necrosis of muscle (Acute) Gangrene of toe of right foot (Acute) Dupuytren's contracture of right hand (Acute) Chronic low back pain (Acute) Nephrolithiasis (Chronic) MARSHAL (obstructive sleep apnea) (Chronic) Hyperlipidemia (Acute) Hypertrophic cardiomyopathy (Acute) Hypertension (Chronic) Afib (Chronic) Osteoarthritis of left shoulder (Acute) CAD (coronary artery disease) (Chronic) Ventricular bigeminy (Acute) Diabetes mellitus type 2 in obese (Acute) Colon cancer screening (Acute) Medical History H/O onychomycosis Hypokalemia CVA (cerebral vascular accident) Nephropathy Tendonitis of left rotator cuff (10/06/15) Surgical History Colonoscopy - MAC (07/15/15) DR.TERRY MON Social History Smoking/Tobacco Use Status: Never Smoking risk assessment performed?: Yes Drug use: Never Housing: house Current gender identity: male Exam Extrem Other: Bilateral lower extremity physical exam: Derm: Skin slough noted to the tip of the right third toe concerning for recent blister however, no BRIEN blister redness, swelling, drainage or malodor no deeper ulceration noted as of yet. There is hyperkeratosis with eschar formation to the tip of the left third toe at risk for ulceration. Incision site noted to the right third webspace status post right third toe amputation, sutures are intact, no signs of dehiscence skin is well coapted, resolving erythema noted, there is edema, no fluctuance no bogginess no crepitus no malodor. Vascular: Pulses are very very faintly palpable if lateral to the right. Edema noted to the right. Pulses are palpable to the left however diminished. A growth absent bilaterally. Skin is warm to touch bilaterally. MSK: Status post amputation of the right third toe. Hammertoes noted bilaterally. Neuro: Light touch sensation absent bilaterally. Paresthesias reported bilaterally Results Last Vital Signs Temp 96.4 F L 04/05/25 11:16 Pulse 89 04/05/25 11:16 Resp 12 04/05/25 11:16 BP 132/90 04/05/25 11:16 Pulse Ox 96 04/05/25 11:16 Labs 04/04/25 06:04 04/05/25 06:27 Labs: Laboratory Results - last 24 hr 04/05/25 04/05/25 04/05/25 06:22 06:27 08:58 Sodium 138 Potassium 3.7 Chloride 105 Carbon Dioxide 28.5 Anion Gap 4.5 BUN 16 Creatinine 1.1 Est GFR (CKD-EPI 2020) 71.32 Glucose 218 H Calcium 8.8 Total Bilirubin 1.7 H Conjugated Bilirubin 0.5 H AST 59 H ALT 83 H Alkaline Phosphatase 298 H C-Reactive Protein 6.69 H Total Protein 5.9 L Albumin 2.3 L Add-On Test Request DONE
--- NOTE | 2025-04-05 15:10 | DSE_ITS ---
Date of service: 04/05/25 Time of Service: 15:11 DS: Diagnosis Discharge Diagnosis (1) Gangrene of toe of right foot: Status: Acute (2) Nephropathy: (3) Diabetic ulcer of foot associated with type 2 diabetes mellitus, with necrosis of muscle: Status: Acute (4) Afib: Status: Chronic (5) CAD (coronary artery disease): Status: Chronic (6) PAD (peripheral artery disease): Status: Acute (7) Acquired hammertoes of both feet: Status: Acute (8) Blistered skin: Status: Acute (9) Corns and callosities: Status: Acute (10) Ulcer of left foot, limited to breakdown of skin: Status: Acute Discharge Plan Disposition Patient Disposition: Home Condition: Stable Discharge Details Reason For Visit: Toe infection Admit Date/Time: 04/03/25 18:22 Admit Provider: Brad Santo Attending Provider: Brad Santo Primary Care Provider: Mert Hurley Hospital Course Hospital Course: 70-year-old gentleman with a past medical history of coronary artery disease, A- fib on apixaban, hypertension, hyperlipidemia and poorly controlled IDDM presents to the emergency department with complaints of a wound on his right third toe that looked like gangrene with some surrounding cellulitis. He was admitted and treated with pipercillin/tazobactam initially with vancomycin, but vanocmycin was not continued as the infection was not purlulent. On 04/04/25 amputation of the right 3rd toe was done by Dr. Camacho without complication. He was discharged on 12 more days of amox/clavulonate orally (quinolones avoided due to known aortic dissection). He had some blistering on his second toes as well as corns and calluses and deminished sensation and pulses in his feet. He had a reassuring CTA of the lower extremity but it was felt he likely had microvascular disease. He was evaluated by Dr. Holloway who recommended outpatient vascular evaluation and ongoing podiatric care. He will follow up with Dr. Olivares his current foundry melt supervisor ongoing care. With his neuropathy he should also have evaluation for diabetic shoes. He will see Dr. Camacho in 2 weeks. His blood sugars had previously been controlled on GLP-1 and metformin, but had been symptomatically high since October of 2024. His PCP had recently started glargine insulin and he had titrated up to 18 units. He was given 22 units / evening and his fasting glucose was still 2017. He was discharged on 24 units with plan for ongoing titration. He was given sliding scale insulin as well and discharged on 5 units aspart before meals. This should also be titrated as an outpatient. Dexcom 7 sensors were also prescribed. He met with staff educator before discharge. He plans to follow up with [facility] diabetic education. LFTs were elevated. He had no pain or tenderness in RUQ. This is likely MASLD that is worse with poor DM control. He was evaluated by PT who recommended outpatient PT. PCP follow up: Visit in the next 2 weeks Titration of insulin and blood sugar control Coordinate vascular consultation Coordinate outpatient PT Follow up abnormal LFTs Follow up blood and tissue cultures from surgery Home Meds and New Rx's Prescriptions: New insulin glargine [Lantus Solostar U-100 Insulin] 100 unit/mL (3 mL) Insulin Pen 24 unit subcut HS Qty: 0 0RF amoxicillin-pot clavulanate 875-125 mg tablet 1 tab PO BID Qty: 24 0RF Fiasp FlexTouch U-100 Insulin 100 unit/mL (3 mL) insulin pen 5 unit subcut AC Qty: 15 2RF (DME) Dexcom G7 Sensor Device See Rx Instructions .Route Qty: 9 3RF Rx Instructions: As directed for insulin dependant diabetes type 2 Continued furosemide 20 mg tablet See Rx Instructions PO DAILY Rx Instructions: take 3 tablets PO daily and q pm prn for increased edema; metoprolol succinate 25 mg tablet extended release 24 hr 12.5 mg PO HS Eliquis 5 mg tablet 5 mg PO BID metformin 1,000 mg tablet 1,000 mg PO BID potassium chloride 10 mEq capsule, extended release 20 meq PO DAILY aspirin [Adult Aspirin Regimen] 81 mg tablet,delayed release (DR/EC) 81 mg PO DAILY finasteride 5 mg tablet 5 mg PO HS atorvastatin 80 mg tablet 80 mg PO HS Trulicity 1.5 mg/0.5 mL pen injector 1.5 mg subcut QWEEK fesoterodine [Toviaz] 4 mg tablet extended release 24 hr 4 mg PO DAILY flaxseed 1,000 MG capsule 1,000 mg PO DAILY loperamide-simethicone [Imodium Multi-Symptom Relief] 1 EACH tablet 1 tab PO DIRECTED PRN glucosamine-chondroitin [Osteo Bi-Flex] 1 EACH tablet 2 tab PO DAILY Centrum Ultra Men's 1 EACH tablet 1 tab PO DAILY tamsulosin [Flomax] 0.4 MG capsule 0.4 mg PO DAILY Fiber Choice (inulin) 1.5 GM tablet,chewable 1.5 gm PO DAILY Discharge Instructions Instructions: Amputation of the Foot or Toe (DC) Additional Instructions: You can continue to slowly increase the Lantus insulin until your morning fasting glucose is 100-150. Use 24 units tonight Try using the short acting insulin pen (aspart insulin) before meals. Start back on your metformin tomorrow as well. Continue Trulicity Stand Alone Forms: Nursing Discharge Form Referrals: Mert Hurley [Primary Care Provider] - (I called your PCP office and left a voicemail to have them call you to make a follow up appointment for within 1 to 2 weeks.) Eric Olivares [[facility] STAFF] - (Left a message for them to give you a call tomorrow to make a follow up appointment.) Activity:: Activity as Tolerated Equipment/Supplies:: Blood Glucose Monitor Diet:: Carb Counting Discharge Orders Discharge Orders: Discharge Order (Routine); Ordered 04/05/25 Ordered By: Bryan Hammond DS: Summary Time Spent with Patient providing and/or coordinating discharge services: Greater than 30 minutes Status at Discharge Functional status at discharge: independent ambulation Overall status at discharge: patient is progressing back to baseline Mental Status: mental status grossly normal Speech and Movement: speech and movement normal Mood: congruent mood Affect: normal affect Quality:SDOH Health Related Social Needs: No Data to Display Exam Narrative Exam Narrative: Well-appearing older gentleman sitting up on the side of the bed in no acute distress, ANO x 4, heart regular rhythm, lungs good auscultation bilaterally, abdomen soft, nontender, nondistended, right foot with bandaged amputated 3rd toe, minimal surrounding erythema/drainage. 2nd toe with distall blistering, not black. Smaller dark area at tip if left 2nd toes. No drainage. Pulses thready bilaterally in DP Psych Mental Status: mental status grossly normal Speech and Movement: speech and movement normal Mood: congruent mood Affect: normal affect DS: Data Vitals/I&O Vitals and I&O: Vital Signs Temperature 35.8 C L 04/05/25 11:16 Temperature Source Temporal Artery Scan 04/05/25 11:16 Pulse 89 04/05/25 11:16 Pulse Rhythm Regular 04/03/25 21:18 Pulse 85 04/03/25 19:20 Respiratory Rate 12 04/05/25 11:16 Respiratory Effort Normal 04/03/25 21:18 Respiratory Depth Normal 04/03/25 21:18 Respiratory Pattern Normal 04/03/25 21:18 Blood Pressure 132/90 04/05/25 11:16 Blood Pressure Mean 104 04/05/25 11:16 Pulse Oximetry 96 04/05/25 11:16 Oxygen Delivery Method Room Air 04/05/25 11:16 Oxygen Flow Rate 0 04/05/25 11:16 Pain Level 0 04/05/25 11:16 Comment RN notified 04/05/25 11:16 Intake & Output 04/04/25 04/05/25 04/05/25 23:59 11:59 23:59 Intake Total 600 / 1480 110 / 110 Balance 600 / 1480 110 / 110 Intake: IV 120 / 520 110 / 110 Oral 480 / 960 Other: Comment Pt voids independently. urine not visualized Data Completed and Pending Labs on day of discharge: Labs from last 24 hours 04/05/25 08:58: Add-On Test Request DONE 04/05/25 06:27: Sodium 138, Potassium 3.7, Chloride 105, Carbon Dioxide 28.5, Anion Gap 4.5, BUN 16, Creatinine 1.1, Est GFR (CKD-EPI 2020) 71.32, Glucose 218 H, Calcium 8.8, Total Bilirubin 1.7 H, Conjugated Bilirubin 0.5 H, AST 59 H, ALT 83 H, Alkaline Phosphatase 298 H, Total Protein 5.9 L, Albumin 2.3 L 04/05/25 06:22: C-Reactive Protein 6.69 H 04/04/25 08:26 Foot - Right Anaerobic Culture - Pending 04/04/25 08:26 Foot - Right Anaerobic Culture - Pending Preliminary micro results at discharge 04/04/25 08:26 Foot - Right Surgical Culture - Preliminary Streptococcus agalactiae(Gp B) 04/04/25 08:26 Foot - Right Surgical Culture - Preliminary Streptococcus agalactiae(Gp B) 04/03/25 14:57 Blood Blood Culture - Preliminary NO GROWTH 24 HOURS 04/03/25 13:45 Blood Blood Culture - Preliminary NO GROWTH 24 HOURS 04/04/25 08:26 Foot - Right Anaerobic Culture - Pending 04/04/25 08:26 Foot - Right Anaerobic Culture - Pending [facility] All Active Problems (Updated 04/05/25 @ 13:34 by Flower Holloway DPM) Ulcer of left foot, limited to breakdown of skin (Acute) Corns and callosities (Acute) Blistered skin (Acute) Acquired hammertoes of both feet (Acute) PAD (peripheral artery disease) (Acute) Dissection of infrarenal aorta (Acute) Elevated LFTs (Acute) Diabetic ulcer of foot associated with type 2 diabetes mellitus, with necrosis of muscle (Acute) Gangrene of toe of right foot (Acute) Dupuytren's contracture of right hand (Acute) Chronic low back pain (Acute) Nephrolithiasis (Chronic) MARSHAL (obstructive sleep apnea) (Chronic) Hyperlipidemia (Acute) Hypertrophic cardiomyopathy (Acute) Hypertension (Chronic) Afib (Chronic) Osteoarthritis of left shoulder (Acute) CAD (coronary artery disease) (Chronic) Ventricular bigeminy (Acute) Diabetes mellitus type 2 in obese (Acute) Colon cancer screening (Acute) Medical History H/O onychomycosis Hypokalemia CVA (cerebral vascular accident) Nephropathy Tendonitis of left rotator cuff (10/06/15) Surgical History Colonoscopy - MAC (07/15/15) DR.TERRY MON Social History Smoking/Tobacco Use Status: Never Smoking risk assessment performed?: Yes Drug use: Never Housing: house Current gender identity: male Time Spent with Patient Time Spent with Patient: 45-69 minutes Time was spent: preparing to see the patient(eg.review tests), obtaining and/or reviewing separately otained hiistory, ordering medications,tests, procedures, referring, communicating with other health urgent care physician assistant, indepentently interpreting results, counseling the patient and care coordination
--- NOTE | 2025-04-05 15:15 | PDOC.CMDIS ---
Date of service: 04/05/25 Time of Service: 15:15 LACE Index Scoring Tool Questions: Length of Stay (in days): 2 Was the patient admitted via the E.D.?: Yes Comorbidities: Cerebrovascular Disease and Diabetes w/o Complication E.D. Visits: 1 Answers: Total Score: 8 Risk of Readmission: Low Risk Care Management Discharge Plan Reason for Hospitalization: gangrenous 3rd toe of right foot/cellulitis. s/p amputation of the 3rd toe right foot Discharge Plan: Bryan will be discharged home this afternoon with no new services. He will have a nutrition/diabetic education consult prior to his discharge today. He will be referred to outpatient PT. Bryan will f/u with podiatry, Dr. Holloway, within 2 weeks and then f/u with his own natural resources manager. He will f/u with his PCP and continue per his prescribed plan of care. He and his were taught wound care and stated that they are comfortable with care. Bryan will transport home with Jacqueline. Patient/Family Education Needs: Review of discharge instructions, activity, limitations and discuss ask me 3. SDOH Health Related Social Needs: No Data to Display
[2025-04-05 15:21] VITALS: BP 132/86; PULSE 90; RESP 20; TEMP 35.9; O2SAT 97
--- NOTE | 2025-04-05 16:02 | W.INDIABCONS ---
Date of service: 04/05/25 Time of Service: 16:02 Diabetes Inpatient Consult Reason for Visit: received nutrition consult re: josé manuel ed/mgt DESCRIPTION/ASSESSMENT: Mr Hassan was treated for cellulitis of right foot and resulting amputation of 3rd toe due to necrosis. Pt with Hx of diabetes with PAD. Hx of obesity, elevated liver enzymes, CAD. Pt and in room upon visit and discussed general diet approaches to take to help manage glucose levels. Pt discharged on Lantus and meal time corrections with insulin aspart. Takes metformin at home and trulicity. Discussed importance of eating a real food diet a majority of time with focus on low added sugar and refined starch, meeting protein needs (and getting a good amount from plant protein) and increasing fiber. Reviewed educational handout with attention to CHO servings and quality of CHO in diet. We discussed some more detailed visits in the outpatient setting and planned an appointment for this Saturday. Time Spent in Nutritional Counseling and Treatment: 20 min
== END 2025-04-05 18:17 | disposition home or self-care (01) | DRG 256 ==
LOC: ER 18:26 → MS 19:40
PROVIDERS: Registered Nurse Emergency; Student in an Organized Health Care Education/Training Program; Admitting Provider Family Medicine; Emergency Provider Nurse Practitioner Family; PCP Student in an Organized Health Care Education/Training Program; Responsible Provider Family Medicine; Visit Provider Family Medicine
PROC: 0Y6T0Z1 Detachment at Right 3rd Toe, High, Open Approach (ICD-10-PCS; CPT 28825; principal; 2025-04-04 07:15)
DX: E11.52 Type 2 diabetes mellitus with diabetic peripheral angiopathy with gangrene; I42.2 Other hypertrophic cardiomyopathy; I96 Gangrene, not elsewhere classified; L97.421 Non-pressure chronic ulcer of left heel and midfoot limited to breakdown of skin; E11.65 Type 2 diabetes mellitus with hyperglycemia; E11.621 Type 2 diabetes mellitus with foot ulcer; E66.9 Obesity, unspecified; L97.513 Non-pressure chronic ulcer of other part of right foot with necrosis of muscle; Z68.32 Body mass index [BMI] 32.0-32.9, adult; E11.21 Type 2 diabetes mellitus with diabetic nephropathy; K76.0 Fatty (change of) liver, not elsewhere classified; I10 Essential (primary) hypertension; I48.91 Unspecified atrial fibrillation; I25.10 Atherosclerotic heart disease of native coronary artery without angina pectoris; M20.41 Other hammer toe(s) (acquired), right foot; M20.42 Other hammer toe(s) (acquired), left foot; E78.5 Hyperlipidemia, unspecified; L97.521 Non-pressure chronic ulcer of other part of left foot limited to breakdown of skin; Z79.01 Long term (current) use of anticoagulants; Z79.85 Long-term (current) use of injectable non-insulin antidiabetic drugs; Z79.84 Long term (current) use of oral hypoglycemic drugs; G47.33 Obstructive sleep apnea (adult) (pediatric); N20.0 Calculus of kidney; Z86.73 Personal history of transient ischemic attack (TIA), and cerebral infarction without residual deficits; L84 Corns and callosities
CPT/HCPCS: 28825; 00123; 36415; 36416; 75635; 80048; 80053; 80076; 82962; 84145; 85027; 85652; 87040; 87077; 93005; 96361; 96365; 96366; 96368; 97110; 97161; 97530; 99222; 99232; 99285; 73630; 83605; 83735; 84484; 85025; 85610; 86140; 87070; 87075; 87205; 93010; 99223; 99239; J0665; J1815; J2003; J2250; J2405; J2543; J2704; J3370; J3490; Q9967

== ENCOUNTER → 2025-04-08 08:11 | Outpatient (BNVA) | payer MEDICARE, BC, SELFPAY | PROVIDERS: PCP Student in an Organized Health Care Education/Training Program; Referring Provider Student in an Organized Health Care Education/Training Program; Visit Provider Podiatrist | DX: E11.69 Type 2 diabetes mellitus with other specified complication (principal); E66.9 Obesity, unspecified; I73.89 Other specified peripheral vascular diseases; I87.2 Venous insufficiency (chronic) (peripheral); Z89.421 Acquired absence of other right toe(s); R09.89 Other specified symptoms and signs involving the circulatory and respiratory systems; R60.0 Localized edema; I83.93 Asymptomatic varicose veins of bilateral lower extremities; R23.8 Other skin changes | CPT/HCPCS: 99213 ==

== ENCOUNTER 2025-04-09 02:12 | Outpatient (CLI) | payer MEDICARE, BC, SELFPAY ==
--- NOTE | 2025-04-09 10:53 | W.NUTRFU ---
Date of service: 04/09/25 Time of Service: 09:00 Nutrition Note NOTE: Bryan in for referred nutrition visit,accompanied by Jacqueline. Discharged Saturday earlier this week with new mealtime insulin order of 5units insulin aspart before meals. Bryan already on basal insulin at 24u but was told to increase every night by 2 units until glucose <200 fasting the next day and then can adjust q3-4 days by two units if needed. Bryan with complications of hyperglycemia - PAD resulting in recent amputation of R 3rd toe. Has been checking capillary glucose at fasting and at HS daily and has been great (with Jacqueline's help) keeping a log of what he has been eating. HS glucose numbers significantly higher into the 300's with a couple earlier this month 600+. Reviewed diet -tends to be low in veggies/fiber - carb choices tend to be on the processes/refined side. Has order for dexcom g7 CGM but was denied per pharmacy - they will follow up to see if different CGM is covered by his insurance. I did have an extra deccom g7 in clinic and applied one today - set up on Dexcom site and with [facility] portal to share glucose trends with me. Has not started mealtime insulin - it was just delivered yesterday but they suspect no needles were ordered - they will check into it. We spent a good deal of time troubleshooting his phone and getting the technology set up on his phone. Remainder of appt was reviewing diet changes and answering questions. REviewed shahid brannon a great menu planning resource that can be interactive in regards to coming up with options for food budget, easy prep, etc... Showed her how to set it up for menus that limit added sugar and increase fiber - meet protein needs but include a significant amount from plants like legumes. discussed importance of activity and suggested upper body strength training as well with limited lower body use while toe is recovering (in boot). discussed using mealtime insulin at ordered 5 units per meal and discussed making suggestions for changes once he tries for 2 weeks. We set up follow up visit of 04/23 to review glucose reports and make suggestions. Time Spent in Nutritional Counseling and Treatment: 60 min
== END 2025-04-09 02:13 | disposition home or self-care (01) ==
LOC: DS 02:12
PROVIDERS: PCP Student in an Organized Health Care Education/Training Program; Visit Provider Dietitian, Registered
DX: E11.9 Type 2 diabetes mellitus without complications (principal)
CPT/HCPCS: 00123; 97802

== ENCOUNTER 2025-04-12 02:45 | Outpatient (CLI) | payer MEDICARE, BC, SELFPAY ==
--- NOTE | 2025-04-12 07:15 | DI.RAD_ITS ---
Exam(s) XR FOOT RT COMPLETE EXAM: XR FOOT RT COMPLETE CLINICAL HISTORY: Post op,amputation of toe of rt foot, s98.131a. TECHNIQUE: 2D digital imaging was performed of the right foot. Three images were obtained. AP, obl ique and lateral views were obtained. COMPARISON: CR XR FOOT RT COMPLETE from 04/03/2025 FINDINGS: BONES: No acute fracture is present. The patient is now status post amputation of the 3rd toe to the level of the mid shaft of the proximal phalanx. There are 2 bony fragments adjacent to the distal as pect of the amputation. No soft tissue gas is appreciated. There is an enthesophyte at the posterio r calcaneus. JOINTS: No dislocation present. Joint spaces appear well maintained. SOFT TISSUE: Normal. IMPRESSION: Status post amputation of the right 3rd toe as described above. DATA REPOSITORY: RADIATION DOSE DELIVERED:
== END 2025-04-12 03:05 ==
LOC: DI 02:45
PROVIDERS: PCP Student in an Organized Health Care Education/Training Program; Visit Provider Podiatrist
DX: S98.131D Complete traumatic amputation of one right lesser toe, subsequent encounter (principal); Z98.890 Other specified postprocedural states; X58.XXXD Exposure to other specified factors, subsequent encounter
CPT/HCPCS: 73630

== ENCOUNTER → 2025-04-16 11:17 | Outpatient (BNVA) | payer MEDICARE, BC, SELFPAY | PROVIDERS: PCP Student in an Organized Health Care Education/Training Program; Referring Provider Student in an Organized Health Care Education/Training Program; Visit Provider Physician Assistant | DX: Z89.421 Acquired absence of other right toe(s) (principal); Z47.89 Encounter for other orthopedic aftercare; E11.9 Type 2 diabetes mellitus without complications | CPT/HCPCS: 99213 ==

== ENCOUNTER → 2025-04-21 09:59 | Outpatient (BNVA) | payer MEDICARE, BC, SELFPAY | PROVIDERS: PCP Student in an Organized Health Care Education/Training Program; Referring Provider Student in an Organized Health Care Education/Training Program; Visit Provider Podiatrist | DX: Z89.421 Acquired absence of other right toe(s) (principal); I87.2 Venous insufficiency (chronic) (peripheral); L60.3 Nail dystrophy; B35.1 Tinea unguium; L84 Corns and callosities; R60.0 Localized edema; E11.9 Type 2 diabetes mellitus without complications; L60.2 Onychogryphosis; L60.8 Other nail disorders | CPT/HCPCS: 99214 ==

== ENCOUNTER → 2025-05-19 10:56 | Outpatient (BNVA) | payer MEDICARE, BC, SELFPAY | PROVIDERS: PCP Student in an Organized Health Care Education/Training Program; Referring Provider Student in an Organized Health Care Education/Training Program; Visit Provider Podiatrist | DX: E11.621 Type 2 diabetes mellitus with foot ulcer (principal); L97.511 Non-pressure chronic ulcer of other part of right foot limited to breakdown of skin; L60.3 Nail dystrophy; B35.1 Tinea unguium; Z89.421 Acquired absence of other right toe(s); I73.89 Other specified peripheral vascular diseases; I87.2 Venous insufficiency (chronic) (peripheral); L84 Corns and callosities; L85.8 Other specified epidermal thickening; R09.89 Other specified symptoms and signs involving the circulatory and respiratory systems; R60.0 Localized edema; I83.93 Asymptomatic varicose veins of bilateral lower extremities; R23.8 Other skin changes; L60.2 Onychogryphosis; L60.8 Other nail disorders | CPT/HCPCS: 11055; 97597 ==

== ENCOUNTER → 2025-06-15 11:25 | Outpatient (BNVA) | payer MEDICARE, BC, SELFPAY | PROVIDERS: PCP Student in an Organized Health Care Education/Training Program; Referring Provider Student in an Organized Health Care Education/Training Program; Visit Provider Podiatrist | DX: Z89.421 Acquired absence of other right toe(s) (principal); I87.2 Venous insufficiency (chronic) (peripheral); B35.1 Tinea unguium; L60.3 Nail dystrophy; L84 Corns and callosities | CPT/HCPCS: 97597 ==

== ENCOUNTER 2025-07-30 13:27 | Outpatient (REF) | payer MEDICARE, BC, SELFPAY ==
[2025-07-30 15:34] LABS: Abs Immature Grans 0.02 10^3/uL (0.0-0.06); HCT 41.0 % (40.0-50.0); HGB 13.7 g/dL (13.5-17.5); Immature Grans % 0.4 %; MCH 30.9 pg (27.0-33.0); MCHC 33.4 % (32.0-36.0); MCV 93 fL (80-95); MPV 11.8 fL (8.0-11.0); Platelet Count 111 10^3/uL (130-400); RBC 4.43 10^6/uL (4.36-5.78); RDW 14.8 % (11.8-14.1); RDW-SD 49.9 fL; WBC 4.84 10^3/uL (4.4-10.8)
[2025-07-30 16:11] LABS: Iron 50 ug/dL (65-175); Total Iron Binding Capacity 292 ug/dL (250-450)
[2025-07-30 16:36] LABS: Anion Gap 7.3 mmol/L (3-11); BUN 22 mg/dL (7-18); CO2 28.7 mmol/L (21.0-32.0); Calcium 8.9 mg/dL (8.5-10.1); Chloride 108 mmol/L (98-107); Estimated GFR 71.32 (mL/min/1.73m2); Ferritin 239 ng/mL (26-388); Folate 9.7 ng/mL (8.6-20.0); Glucose 96 mg/dL (74-106); Potassium 3.8 mmol/L (3.5-5.1); Sodium 144 mmol/L (136-145); TSH (W/Ref FT4) 2.12 uIU/mL (0.36-3.74); Vitamin B12 387 pg/mL (193-986)
[2025-07-31 01:48] LABS: PSA, Screening 2.8 ng/mL (<=6.5)
== END 2025-07-30 13:28 | disposition home or self-care (01) ==
LOC: NCHCN 13:27
PROVIDERS: PCP Student in an Organized Health Care Education/Training Program; Visit Provider Student in an Organized Health Care Education/Training Program
DX: D64.9 Anemia, unspecified (principal); I10 Essential (primary) hypertension; Z12.5 Encounter for screening for malignant neoplasm of prostate
CPT/HCPCS: 80048; 84153; 82607; 82728; 82746; 83540; 83550; 84443; 85025

== ENCOUNTER → 2025-08-02 09:01 | Outpatient (BNVA) | payer MEDICARE, BC, SELFPAY | PROVIDERS: PCP Student in an Organized Health Care Education/Training Program; Referring Provider Student in an Organized Health Care Education/Training Program; Visit Provider Podiatrist | DX: L60.3 Nail dystrophy (principal); B35.1 Tinea unguium; L97.511 Non-pressure chronic ulcer of other part of right foot limited to breakdown of skin; L84 Corns and callosities; Z89.421 Acquired absence of other right toe(s); I87.2 Venous insufficiency (chronic) (peripheral); I73.89 Other specified peripheral vascular diseases; R09.89 Other specified symptoms and signs involving the circulatory and respiratory systems; R60.0 Localized edema; I83.93 Asymptomatic varicose veins of bilateral lower extremities; R23.8 Other skin changes; L60.2 Onychogryphosis; L60.8 Other nail disorders; L85.8 Other specified epidermal thickening | CPT/HCPCS: 11719; 97597 ==

== ENCOUNTER → 2025-08-31 09:02 | Outpatient (BNVA) | payer MEDICARE, BC, SELFPAY | PROVIDERS: PCP Student in an Organized Health Care Education/Training Program; Referring Provider Student in an Organized Health Care Education/Training Program; Visit Provider Podiatrist | DX: I87.2 Venous insufficiency (chronic) (peripheral) (principal); B35.1 Tinea unguium; L60.3 Nail dystrophy; L84 Corns and callosities; Z89.421 Acquired absence of other right toe(s); R09.89 Other specified symptoms and signs involving the circulatory and respiratory systems; L60.2 Onychogryphosis; L60.8 Other nail disorders; L85.8 Other specified epidermal thickening; R60.0 Localized edema; I83.93 Asymptomatic varicose veins of bilateral lower extremities | CPT/HCPCS: 11055 ==

== ENCOUNTER 2025-10-26 10:10 | Outpatient (REF) | payer MEDICARE, BC, SELFPAY ==
[2025-10-26 18:00] LABS: Microalb ug/mg Crea 124.6 ug/mg Cr
== END 2025-10-26 10:11 | disposition home or self-care (01) ==
LOC: NCHCN 10:10
PROVIDERS: PCP Student in an Organized Health Care Education/Training Program; Visit Provider Student in an Organized Health Care Education/Training Program
DX: E11.52 Type 2 diabetes mellitus with diabetic peripheral angiopathy with gangrene (principal)
CPT/HCPCS: 82043; 82570

== ENCOUNTER → 2025-11-01 09:08 | Outpatient (BNVA) | payer MEDICARE, BC, SELFPAY | PROVIDERS: PCP Student in an Organized Health Care Education/Training Program; Referring Provider Student in an Organized Health Care Education/Training Program; Visit Provider Podiatrist | DX: L60.3 Nail dystrophy (principal); B35.1 Tinea unguium; I87.2 Venous insufficiency (chronic) (peripheral); L84 Corns and callosities; Z89.421 Acquired absence of other right toe(s); E11.59 Type 2 diabetes mellitus with other circulatory complications; R09.89 Other specified symptoms and signs involving the circulatory and respiratory systems; R60.0 Localized edema; I83.93 Asymptomatic varicose veins of bilateral lower extremities; R23.4 Changes in skin texture; L85.8 Other specified epidermal thickening; L60.2 Onychogryphosis; L60.8 Other nail disorders | CPT/HCPCS: 11055; 11721 ==